=== PATIENT | male | born 1945 | race Caucasian/White ===

== ENCOUNTER 2021-07-08 08:05 | Inpatient (IN) ==
--- NOTE | 2021-06-30 12:18 | Anesthesiology Consultation ---
Date of Service June 30, 2021 Assessment & Plan (1) Encounter for pre-operative examination: Chart Review Chart Review: Pending: Refer to Additional Notes / Consult section (surgeon ordered PCP clearance and preop Covid testing results; CBC and PRP ordered for DOS) and Patient NOT seen in Pre Admission Testing -Awaiting surgeon ordered PCP clearance -No preop labs updated- will order CBC with diff and PRP for stat AM of surgery Per nursing assessment 06/30/2021, patient denies any recent travel. No known Covid infection in the past 90 days. Patient is not vaccinated for Covid. No known Covid positive exposures or Covid related symptoms. Preop Covid testing scheduled 07/06/21= will await results Per cardio phone message 06/03/21 = "Dobutamine stress echo negative for inducible ischemia. Patient may proceed with orthopedic surgery." Patient seen by cardiology 04/19/2021 = seen for preoperative cardiovascular evaluation prior to spine surgery. Doing well from cardiovascular standpoint. Activity limited by low back pain and primarily right lower extremity radiculopathy. Chronic ischemic heart disease without angina at limited activity level. Moderate perioperative cardiovascular risk due to chronic CAD, and limited functional capacity. Dyslipidemiacontrolled with statin. Hypertensioncontrolled. Overweight. Chronic sinus bradycardiaasymptomatic. Recommend DSE for further risk stratification prior to spinal surgery. Functio nal capacity is limited to due to low back pain and radiculopathy. History Surgery Operation Date: 07/08/21 09:45 Proposed Procedures p L3-L4 Decompression and Fusion, L4-L5 Hardware Removal - Gorge Redman, Height/Weight Height: 5 ft 10.5 in Weight: 95.254 kg Allergies Allergy/AdvReac Type Severity Reaction Status Date / Time No Known Allergies Allergy Unknown Verified 06/30/21 11:24 Medications Home Medications Medication Instructions Recorded Confirmed Last Taken aspirin 81 mg tablet,delayed 81 mg PO QAM 04/12/21 06/30/21 Unknown release ezetimibe 10 mg tablet 10 mg PO QPM 04/12/21 06/30/21 Unknown isosorbide mononitrate 30 mg 30 mg PO QAM 04/12/21 06/30/21 Unknown tablet,extended release 24 hr losartan 50 mg-hydrochlorothiazide 1 tab PO QPM 04/12/21 06/30/21 Unknown 12.5 mg tablet metoprolol succinate 25 mg 25 mg PO QPM 04/12/21 06/30/21 Unknown tablet,extended release 24 hr omeprazole 20 mg tablet,delayed 20 mg PO QAM 04/12/21 06/30/21 Unknown release rosuvastatin 20 mg tablet 20 mg PO QPM 04/12/21 06/30/21 Unknown Past Medical History Medical History CAD (coronary artery disease) - Per cardio records= "2010 left heart catheterization performed demonstrating 70 -80% ostial stenosis of the obtuse marginal branch. Patient was noted to have approximately 50% left main as well as a 60% distal LAD stenosis. Patient subsequently had an IVUS performed by Dr. Elizabeth demonstrating minimal left main area of 7.76 mm2. The distal left anterior descending artery area was found to be 3.58. The obtuse marginal stenosis was not intervened secondary to its location and poor risk to benefit ratio." -Currently under medical management by cardio DDD (degenerative disc disease) GERD (gastroesophageal reflux disease) Hearing deficit hearing aids bilat History of COVID-17 JULY 2020>MILD SYMPTOMS *FEELING BETTER HLD (hyperlipidemia) HTN (hypertension) Osteoarthritis Spinal stenosis Past Family History Family History Other No family history of adverse response to anesthesia Past Surgical History Surgical History History of Achilles tendon repair Lt History of arthroscopic surgery of elbow Rt History of arthroscopy of right knee x 2 History of cardiac cath 2010 - [place] - CP - no stents History of colonoscopy History of lumbar fusion History of rotator cuff surgery RT/LEFT Social History Smoking Status: Never smoker Hx Alcohol Use: No Hx Substance Use: No substance use type: does not use Testing Electrocardiogram Date: 04/16/21 Sinus bradycardia, rate 52 bpm. Non-specific intra-ventricular conduction block No significant change was found when compared with ECG of 11/10/2008. Chest X-Ray Date: 04/16/21 No acute process. Stress Test Date: 05/17/21 Type: DSE Resting EF: 60 to 65% Resting LV Function: normal Resting RWMA: + none Normal pharmacologic stress echocardiogram. No echocardiographic or EKG evidence of myocardial ischemia having achieved heart rate adequate for diagnostic purposes. MPHR 86%. Stress EKG showed no diagnostic ST abnormalitiesThe patient did develop, resolving in recovery, right bundle branch block at higher heart rate resolving in recovery. Mild/concentric LVH. Aortic valve sclerosis mild, without significant aortic valvular stenosis.
[~2021-07-08 08:05] MED LIST: ACETAMINOPHEN 500 MG TAB PO SCH; CeleBREX 200 MG CAP PO SCH; GABAPENTIN 300 MG CAP PO SCH; LR 15ML/HR IV SCH; ceFAZolin 2000MG 2,000 MG/15 ML SYR IV SCH
[2021-07-08] MEDS ORDERED: fentaNYL citrate 100 MCG/2 ML VIAL ONE (08:22)
[2021-07-08] MEDS ORDERED: ONDANSETRON INJ 2 MG/ML 2 ML VIAL ONE (08:26)
[2021-07-08] MEDS ORDERED: DEXAMETHASONE SOD INJ 4 MG/ML VIAL ONE (08:26)
[2021-07-08] MEDS ORDERED: PROPOFOL IV EMULSION 10 MG/ML 20 ML VIAL IV ONE (08:26)
[2021-07-08] MEDS ORDERED: NEOSTIGMINE METHYLSULFATE 1 MG/ML 10ML VIAL ONE (08:26)
[2021-07-08] MEDS ORDERED: ROCURONIUM BROMIDE 10 MG/ML 5 ML VIAL IV ONE ×4 (08:26→12:46)
[2021-07-08] MEDS ORDERED: LIDOCAINE 2% 2 ML VIAL/AMP(20MG/ML) INFIL ONE (08:26)
[2021-07-08] MEDS ORDERED: GLYCOPYRROLATE 0.2 MG/ML VIAL ONE ×2 (08:26→14:50)
[2021-07-08 08:47] LABS: Basophils # (auto) 0.01 K/uL (0-0.2); Basophils % (auto) 0.3 %; Eosinophils # (auto) 0.04 K/uL (0-0.5); Hematocrit (blood only) 43.1 % (42-52); Hemoglobin 14.8 g/dL (14.0-18.0); Immature Granulocytes # (auto) 0.01 K/uL (0.00-0.02); Immature Granulocytes % (auto) 0.3 %; Lymphocytes # (auto) 1.03 K/uL (1.2-3.4); Lymphocytes % (auto) 25.9 %; Mean Corpuscular Hemoglobin 32.1 pg (25-34); Mean Corpuscular Hgb Conc 34.3 g/dL (32-36); Mean Corpuscular Volume 93.5 fL (80-100); Mean Platelet Volume 9.3 fL (7.4-10.4); Monocytes # (auto) 0.37 K/uL (0.11-0.59); Monocytes % (auto) 9.3 %; Neutrophils # (auto) 2.51 K/uL (1.4-6.5); Neutrophils % (auto) 63.2 %; Platelet Count 199 K/uL (130-400); RDW Coefficient of Variation 12.5 % (11.5-14.5); RDW Standard Deviation 42.1 fL (36.4-46.3); Red Blood Count 4.61 M/uL (4.7-6.1); White Blood Count 3.97 K/uL (4.8-10.8)
[2021-07-08] MEDS ORDERED: ONDANSETRON INJ 2 MG/ML 2 ML VIAL IV PRN (10:25)
[2021-07-08] MEDS ORDERED: ATROPINE SULFATE 0.1 MG/ML 10ML SYR IV PRN (10:25)
[2021-07-08] MEDS ORDERED: ePHEDrine sulfate 50 MG/ML AMP IV PRN (10:25)
[2021-07-08] MEDS ORDERED: HYDROmorphone INJ 1 MG/ML SYRINGE IV PRN (10:25)
[2021-07-08] MEDS ORDERED: LABETALOL HCL IV 5 MG/ML 20ML IV PRN (10:25)
[2021-07-08] MEDS ORDERED: PHENYLEPHRINE 100MCG/ML 5ML SYR IV PRN (10:25)
[2021-07-08] MEDS ORDERED: MEPERIDINE HCL 25 MG/ML CARP/VIAL IV PRN (10:25)
--- NOTE | 2021-07-08 11:10 | History & Physical Report ---
Date of Service July 08, 2021 Assessment & Plan (1) Neurogenic claudication due to lumbar spinal stenosis: Plan: L3-L4 decompression and fusion, L4-5 hardware removal History of Present Illness Chief Complaint: Back and bilateral leg pain Primary Care Provider: Brett Woodruff DO This is a 76-year-old male presents with chronic persistent back and leg pain. Failing course of nonoperative care is here for surgical invention. Allergies Allergy/AdvReac Type Severity Reaction Status Date / Time No Known Allergies Allergy Unknown Verified 07/08/21 08:19 Home Medications Medication Instructions Recorded Confirmed Type aspirin 81 mg tablet,delayed 81 mg PO QAM 04/12/21 07/08/21 History release ezetimibe 10 mg tablet 10 mg PO QPM 04/12/21 07/08/21 History isosorbide mononitrate 30 mg 30 mg PO QAM 04/12/21 07/08/21 History tablet,extended release 24 hr losartan 50 mg-hydrochlorothiazide 1 tab PO QPM 04/12/21 07/08/21 History 12.5 mg tablet metoprolol succinate 25 mg 25 mg PO QPM 04/12/21 07/08/21 History tablet,extended release 24 hr omeprazole 20 mg tablet,delayed 20 mg PO QAM 04/12/21 07/08/21 History release rosuvastatin 20 mg tablet 20 mg PO QPM 04/12/21 07/08/21 History Past Med/Surg History Medical History (Updated 07/08/21 @ 11:10 by Gorge Redman DO) CAD (coronary artery disease) - Per cardio records= "2010 left heart catheterization performed demonstrating 70 -80% ostial stenosis of the obtuse marginal branch. Patient was noted to have approximately 50% left main as well as a 60% distal LAD stenosis. Patient subsequently had an IVUS performed by Dr. Elizabeth demonstrating minimal left main area of 7.76 mm2. The distal left anterior descending artery area was found to be 3.58. The obtuse marginal stenosis was not intervened secondary to its location and poor risk to benefit ratio." -Currently under medical management by cardio DDD (degenerative disc disease) GERD (gastroesophageal reflux disease) Hearing deficit hearing aids bilat History of COVID-17 JULY 2020>MILD SYMPTOMS *FEELING BETTER HLD (hyperlipidemia) HTN (hypertension) Obesity Osteoarthritis Spinal stenosis Surgical History History of Achilles tendon repair Lt History of arthroscopic surgery of elbow Rt History of arthroscopy of right knee x 2 History of cardiac cath 2010 - [place] - CP - no stents History of colonoscopy History of lumbar fusion History of rotator cuff surgery RT/LEFT Family History Other No family history of adverse response to anesthesia Social History Smoking Status: Never smoker Second Hand Exposure: No; Hx Alcohol Use: No Hx Substance Use: No Preferred Language: Cuban Communication Ability: Effective Bike Shop Manager Required: No Beliefs That Will Affect Care: None Current Living Situation: Spouse Feels Safe at Home: Yes Assistive Devices: Contacts and Hearing Aid - Bilateral Physical Exam Physical Exam: Patient is alert and oriented Heart regular in rhythm Lungs clear Results & Data ([facility]) Vital Signs (Past 12 Hours) Vital Signs Temp Pulse Resp BP Pulse Ox 07/08/21 08:29 36.8 C 64 18 154/82 H 96
--- NOTE | 2021-07-08 11:10 | History & Physical Bridge Note ---
Date of Service July 08, 2021 History & Physical Bridge Note I have examined the patient, reviewed the History & Physical and in the interval since the performance of the History & Physical I have noted the following changes of clinical significance: no changes noted
[2021-07-08] MEDS ORDERED: BUPIVACAINE 0.5 % 5 MG/1 ML MPF 30ML VIAL ONE (11:25)
[2021-07-08] MEDS ORDERED: EPINEPHrine INJ 1 MG/ML AMP ONE (11:25)
[2021-07-08] MEDS ORDERED: ceFAZolin 330 MG/ML 1 GM VIAL ONE (11:25)
[2021-07-08] MEDS ORDERED: ePHEDrine sulfate 50 MG/ML AMP ONE (12:09)
[2021-07-08] MEDS ORDERED: FLOSEAL HEMOSTATIC MATRIX 10ML TOP ONE (12:52)
--- NOTE | 2021-07-08 14:55 | Fluoroscopy Report ---
FL lumbar spine 2-3V CLINICAL HISTORY: L4-5 REMOVE hardware. L3-4 decompression and fusion COMPARISON STUDY: None. FLUOROSCOPY TIME: 20 seconds.. FINDINGS: 2 fluoroscopic spot images demonstrate posterior decompression fusion at the lower lumbar s pine likely at the L3-L4 level with pedicle screws and rods. The hardware appears intact. The exact l evel is difficult to determine due to the spot image. IMPRESSION: Fluoroscopic assistance provided for posterior decompression and fusion within the lumbar spine as described above. ACT 112: Negative or not required by law. Electronically signed by: Luis Antonio Greer M.D. 07/08/2021 2:54 PM
[2021-07-08] MEDS: fentaNYL citrate 100 MCG/2 ML VIAL IV PRN ×4 (16:00→16:55)
--- NOTE | 2021-07-08 16:33 | Anesthesiology Progress Note ---
Date of Service July 08, 2021 Anesthesia Post Procedure Vital Signs Vital Signs: Temp Pulse Pulse Resp BP Pulse Ox 07/08/21 16:20 54 L 17 121/71 99 07/08/21 16:10 46 L 18 133/66 95 07/08/21 16:00 36.4 C L 55 L 16 123/70 96 07/08/21 15:50 51 L 14 139/71 98 07/08/21 15:40 49 L 14 137/73 99 07/08/21 15:30 521 H 15 139/76 99 07/08/21 15:20 53 L 16 143/74 H 99 07/08/21 15:13 36 C L 67 14 136/83 99 07/08/21 08:29 36.8 C 64 18 154/82 H 96 Pain Intensity Back: Pain Intensity: 6 Transfer of Care Handoff Completed per policy Notes Mental Status: alert / awake / arousable Patient Amnestic to Procedure: Yes Nausea / Vomiting: adequately controlled Pain: adequately controlled Airway Patency, RR, SpO2: stable & adequate BP & HR: stable & adequate Hydration State: stable & adequate Anesthetic Complications: no major complications apparent
[2021-07-08] MEDS ORDERED: oxyCODONE HCL IR 5 MG TAB (IMMEDIATE RELEASE) PO PRN (17:45)
[2021-07-08] MEDS: SODIUM CHLORIDE 0.9% 1000ML 1,000 ML IV SCH (17:49)
[2021-07-08] MEDS ORDERED: NALOXONE HCL 0.4 MG/1 ML VIAL/CARP IV PRN (18:29)
--- NOTE | 2021-07-08 18:30 | Hospitalist Consultation ---
Date of Consultation July 08, 2021 Assessment & Plan (1) Neurogenic claudication due to lumbar spinal stenosis: S/P spinal surgery by Dr. Redman - Activity positioning and restrictions per primary service - Pain medications per primary service- rescue Narcan added - ABX per primary service - IVF per primary service - VTE- per primary service - Diet per primary service - Drains/Golden catheter per primary service - PT/OT per primary service (2) HTN (hypertension): Controlled currently - Resume Isosorbide in am - Metoprolol succinate 25mg PO qpm- restart tonight (3) CAD (coronary artery disease): History of CAD- Cath 2014 with 70-80% Om, 50% LT Main, 60% LAD, with IVUS - medical managment - ASA on hold until hemostasis ensured by primary service- - Continue BB, statin, - Hold JOSE/HCTZ while following intravascular volume, hemodynamics, and renal function- likely restart in am (4) GERD (gastroesophageal reflux disease): Protonix 40mg IV - restart oral when tolerating diet - Continue PPI while on Decadron IV (5) Obesity: Continue with weight reduction goals to decrease roasterman CV morbidity Supervising Physician Co-Signing Physician Notes Patient seen and examined, chart reviewed, case discussed with Nilesh Russell and I agree with the assessment and plan as above except as otherwise noted General: A&O. NAD. Cooperative. Laying in bed HEENT: Atraumatic, normocephalic. Pulm: Limited as laying flat, grossly CTAB A&P. -wheezes, -rales, -rhonchi. Symmetrical chest rise. No increase work of breathing. No respiratory distress. Cardiac: RRR, -mrg. Radial pulses intact and symmetrical. Abdominal: Nontender, nondistended, soft. BS present. Ext: Sensation to soft touch intact in hands and feet, PT/radial pulses intact bilat All labs and images reviewed 76yo M s/p spinal surgery for neurogenic claudication 2/2 lumbar stenosis. Stable at assessment. No CP. JOSE/HCtz held, resume in AM. Agree w/ management as above. History of Present Illness Reason for Consultation: Medical Managment Requesting Physician: Dr. Redman Attending Physician: Gorge Redman, DO History of Present Illness 76 YOM POD #0 for L3-L4 decompression and fusion with L4-L5 hardware removal secondary to neurogenic claudication. Patient has medical history consistent with CAD, HLD, HTN, GERD, Hearing aid use, Obesity, and OA. Patient had Dobutamine stress ECHO done 05/22 that was negative. Patient was evaluated in his room status post procedure where he is flat lying in bed under Orthopaedics direction. Patient is briskly awake states no nausea or vomitting. Pain is controlled and his right leg feels improved. Patient has full sensation and movement intact of all extremities. Vital signs reviewed. Medications Reconciled. Recomendations: - ASA - hold restart when hemostasis is ensured by primary service - Added Protonix IV while on daily Decadron 6mg IV - Hold Losartan/HCTZ follow volume status and renal indices- likely restart within next 24-48 hours - Continue rest of home medications - BG checks while on Decadron daily- notify if >180 - CBC, BMP, MG in morning Allergies Allergy/AdvReac Type Severity Reaction Status Date / Time No Known Allergies Allergy Unknown Verified 07/08/21 08:19 Home Medications Medication Instructions Recorded Confirmed Type aspirin 81 mg tablet,delayed 81 mg PO QAM 04/12/21 07/08/21 History release ezetimibe 10 mg tablet 10 mg PO QPM 04/12/21 07/08/21 History isosorbide mononitrate 30 mg 30 mg PO QAM 04/12/21 07/08/21 History tablet,extended release 24 hr losartan 50 mg-hydrochlorothiazide 1 tab PO QPM 04/12/21 07/08/21 History 12.5 mg tablet metoprolol succinate 25 mg 25 mg PO QPM 04/12/21 07/08/21 History tablet,extended release 24 hr omeprazole 20 mg tablet,delayed 20 mg PO QAM 04/12/21 07/08/21 History release rosuvastatin 20 mg tablet 20 mg PO QPM 04/12/21 07/08/21 History Patient History Medical History (Updated 07/08/21 @ 18:28 by CIRO Rayo) CAD (coronary artery disease) - Per cardio records= "2010 left heart catheterization performed demonstrating 70 -80% ostial stenosis of the obtuse marginal branch. Patient was noted to have approximately 50% left main as well as a 60% distal LAD stenosis. Patient subsequently had an IVUS performed by Dr. Al Zoda demonstrating minimal left main area of 7.76 mm2. The distal left anterior descending artery area was found to be 3.58. The obtuse marginal stenosis was not intervened secondary to its location and poor risk to benefit ratio." -Currently under medical management by cardio DDD (degenerative disc disease) GERD (gastroesophageal reflux disease) Hearing deficit hearing aids bilat History of COVID-17 JULY 2020>MILD SYMPTOMS *FEELING BETTER HLD (hyperlipidemia) HTN (hypertension) Obesity Osteoarthritis Spinal stenosis Surgical History History of Achilles tendon repair Lt History of arthroscopic surgery of elbow Rt History of arthroscopy of right knee x 2 History of cardiac cath 2010 [place] CP - no stents History of colonoscopy History of lumbar fusion History of rotator cuff surgery RT/LEFT Family History Other No family history of adverse response to anesthesia Social History Smoking Status: Never smoker Second Hand Exposure: No; Hx Alcohol Use: No Hx Substance Use: No Preferred Language: Chilean Communication Ability: Effective Business Systems Manager Required: No Beliefs That Will Affect Care: None Current Living Situation: Spouse Feels Safe at Home: Yes Assistive Devices: Contacts and Hearing Aid - Bilateral Review of Systems Review of Systems: REVIEW OF SYSTEMS: Constitutional: No fever, sweats or chills Eyes: No diplopia, no worsening or blurred vision ENT: (+) hearing aids, dry moth, scratchy throat no trouble swallowing Respiratory: No cough, sputum, dyspnea at rest or on exertion Cardiovascular: No chest pain, tightness or palpitations Abdomen: No pain, nausea, vomiting, diarrhea or constipation Musculoskeletal: (+) chronic back and knee pain, No calf pain, swelling Neurologic: No weakness, numbness/tingling, or balance problems Psychiatric: No anxiety or depression Skin: No rash or itch Physical Exam Physical Exam: PHYSICAL EXAM: General: awake, alert, no apparent distress Head: Normocephalic, atraumatic ENT: PERRL, EOMI, no pharyngeal exudate, mucous membranes dry Neuro: AAO x 3, speech clear and appropriate, strength intact bilaterally 5/5, sensation intact and equal all extremities and dermatomes, flat lying per orthopaedics direction Chest: equal rise and fall of the chest, no accessory muscle use, no heaves or thrills, Clear to auscultation, on room air, Cardiac: Regular rate and rhythm, S1S2, skin warm dry, cap refill <3 seconds, peripheral pulses +2 no JVD, no murmur, no edema GI: NABS x 4 quadrants, soft obese, nontender to palpation, no rebound, guarding or tenderness : Golden to gravity, no pain, no CVA tenderness, Extremities: Normal inspection, no peripheral edema or erythema, calfs nontender to palpation Psych: Normal mood and affect Skin: no rash or erythema Results & Data Results & Data ([facility]) Vital Signs (Past 12 Hours) Vital Signs Temp Pulse Pulse Resp BP Pulse Ox 07/08/21 18:00 36.6 C 62 18 147/81 H 97 07/08/21 17:29 36.3 C L 69 18 130/72 94 07/08/21 17:00 36.1 C L 47 L 15 127/66 97 07/08/21 16:45 48 L 20 119/66 97 07/08/21 16:30 45 L 21 123/64 98 07/08/21 16:20 54 L 17 121/71 99 07/08/21 16:10 46 L 18 133/66 95 07/08/21 16:00 36.4 C L 55 L 16 123/70 96 07/08/21 15:50 51 L 14 139/71 98 07/08/21 15:40 49 L 14 137/73 99 07/08/21 15:30 521 H 15 139/76 99 07/08/21 15:20 53 L 16 143/74 H 99 07/08/21 15:13 36 C L 67 14 136/83 99 07/08/21 08:29 36.8 C 64 18 154/82 H 96 Laboratory Results Abnormal lab results 07/08/21 Range/Units 08:32 WBC 3.97 L (4.8-10.8) K/uL RBC 4.61 L (4.7-6.1) M/uL Lymph # (Auto) 1.03 L (1.2-3.4) K/uL Diagnostic Findings Lumbar Spine X-Ray 07/08/21 09:45 FL lumbar spine 2-3V CLINICAL HISTORY: L4-5 REMOVE hardware. L3-4 decompression and fusion COMPARISON STUDY: None. FLUOROSCOPY TIME: 20 seconds.. FINDINGS: 2 fluoroscopic spot images demonstrate posterior decompression fusion at the lower lumbar spine likely at the L3-L4 level with pedicle screws and rods. The hardware appears intact. The exact level is difficult to determine due to the spot image. IMPRESSION: Fluoroscopic assistance provided for posterior decompression and fusion within the lumbar spine as described above. ACT 112: Negative or not required by law. Electronically signed by: Luis Antonio Greer M.D. 07/08/2021 2:54 PM Medications Administered Lactated Ringer's (Lr) 1,000 mls @ 15 mls/hr IV .Q24H YESSENIA Stop: 07/09/21 05:59 Last Infusion: 07/08/21 11:47 Dose: 0 mls/hr Documented by: [id number] Admin: 07/08/21 08:44 Dose: 15 mls/hr Documented by: [id number] Sodium Chloride (Nss 1000ml) 1,000 mls @ 100 mls/hr IV .Q10H YESSENIA Stop: 08/07/21 17:44 Last Admin: 07/08/21 17:49 Dose: 100 mls/hr Documented by: [id number] Discontinued Medications Acetaminophen (Acetaminophen 500 Mg Tab) 1,000 mg PO PREOP YESSENIA Stop: 07/08/21 18:00 Last Admin: 07/08/21 08:45 Dose: 1,000 mg Documented by: [id number] Bupivacaine HCl (Bupivacaine 0.5 % 5 Mg/1 Ml Mpf 30ml Vial) Confirm Administered Dose 30 ml .ROUTE .STK-MED ONE Stop: 07/08/21 11:26 Last Admin: 07/08/21 12:49 Dose: 30 ml Documented by: [id number] Cefazolin Sodium (Cefazolin 330 Mg/Ml 1 Gm Vial) Confirm Administered Dose 990 mg .ROUTE .STK-MED ONE Stop: 07/08/21 11:26 Last Admin: 07/08/21 12:50 Dose: 990 mg Documented by: [id number] Celecoxib (Celebrex 200 Mg Cap) 200 mg PO PREOP YESSENIA Stop: 07/08/21 18:00 Last Admin: 07/08/21 08:45 Dose: 200 mg Documented by: [id number] Epinephrine HCl (Epinephrine Inj 1 Mg/Ml Amp) Confirm Administered Dose 1 mg .ROUTE .STK-MED ONE Stop: 07/08/21 11:26 Last Admin: 07/08/21 12:51 Dose: 1 mg Documented by: [id number] Fentanyl Citrate (Fentanyl Citrate 100 Mcg/2 Ml Vial) 25 mcg IV Q5M PRN PRN Reason: PACU Use Only-Pain Stop: 07/08/21 18:25 Last Admin: 07/08/21 16:55 Dose: 25 mcg Documented by: [id number] Admin: 07/08/21 16:20 Dose: 25 mcg Documented by: [id number] Admin: 07/08/21 16:06 Dose: 25 mcg Documented by: [id number] Admin: 07/08/21 16:00 Dose: 25 mcg Documented by: [id number] Gabapentin (Gabapentin 300 Mg Cap) 300 mg PO PREOP YESSENIA Stop: 07/08/21 18:00 Last Admin: 07/08/21 08:45 Dose: 300 mg Documented by: [id number] Cefazolin Sodium (Ancef 2000mg) 2,000 mg in 15 mls @ 3.75 mls/min IV PREOP YESSENIA; Protocol Stop: 07/08/21 18:00 Last Admin: 07/08/21 11:47 Dose: 3.75 mls/min Documented by: [id number] Miscellaneous ( Floseal Hemostatic Matrix 10ml) 10 ml TOP ONCE ONE Stop: 07/08/21 12:53 Last Admin: 07/08/21 15:45 Dose: 45 ml Documented by: [id number] PG Care Time/CCT Total # of Minutes Spent Total Time Spent with Patient: Total time spent is greater than 50% in coordination of care (as documented) at patient's floor/unit and/or counseling patient: Coding Level of Care Code 26990 Office/OBS Consult Lvl 3 Diagnoses Neurogenic claudication due to lumbar spinal stenosis M48.062 HTN (hypertension) I10 CAD (coronary artery disease) I25.10 GERD (gastroesophageal reflux disease) K21.9 Obesity E66.9
[2021-07-08] MEDS: ceFAZolin 2000MG 2,000 MG/15 ML SYR IV SCH (19:33)
[2021-07-08] MEDS ORDERED: CHLORASEPTIC 1.4% SOLN 180 ML BTL MT PRN (20:57)
[2021-07-08] MEDS ORDERED: EZETIMIBE 10 MG TABLET PO SCH (21:00)
[2021-07-08] MEDS ORDERED: ROSUVASTATIN CALCIUM 20 MG TAB PO SCH (21:00)
[2021-07-08] MEDS: METOPROLOL SUCC 25MG EXT REL TAB PO SCH (21:04)
[2021-07-08] MEDS: traMADol HCL 50 MG TABLET PO PRN (22:04)
[2021-07-08] MEDS: HYDROmorphone INJ 0.5 MG/0.5 ML SYR IV PRN (23:33)
[2021-07-09] MEDS ORDERED: ONDANSETRON INJ 2 MG/ML 2 ML VIAL IV PRN (01:48)
[2021-07-09] MEDS: SODIUM CHLORIDE 0.9% 1000ML 1,000 ML IV SCH (03:30)
[2021-07-09] MEDS: ceFAZolin 2000MG 2,000 MG/15 ML SYR IV SCH (03:43)
[2021-07-09] MEDS ORDERED: PROCHLORPERAZINE 5 MG in SYRINGE 4 ML IV ONE ×2 (03:45→06:52)
[2021-07-09] MEDS: HYDROmorphone INJ 0.5 MG/0.5 ML SYR IV PRN ×2 (03:52→12:09)
[2021-07-09 04:40] LABS: Appearance Urine Clear (Clear); Bacteria Urine Automated Negative (Negative); Bilirubin Urine Negative (Negative); Blood Urine 2+ (Negative); Color Urine Yellow; Glucose Urine UA Negative (Negative); Ketones Urine Negative (Negative); Leukocyte Esterase Urine Trace (Negative); Nitrite Urine Negative (Negative); Protein Urine Negative (Negative); Specific Gravity Urine 1.024 (1.000-1.030); Urobilinogen Urine Negative (Negative)
[2021-07-09 06:25] LABS: Hematocrit (blood only) 39.1 % (42-52); Hemoglobin 13.4 g/dL (14.0-18.0); Immature Granulocytes # (auto) 0.02 K/uL (0.00-0.02); Immature Granulocytes % (auto) 0.2 %; Lymphocytes # (auto) 0.43 K/uL (1.2-3.4); Lymphocytes % (auto) 3.8 %; Mean Corpuscular Hemoglobin 31.7 pg (25-34); Mean Corpuscular Hgb Conc 34.3 g/dL (32-36); Mean Corpuscular Volume 92.4 fL (80-100); Mean Platelet Volume 9.3 fL (7.4-10.4); Monocytes % (auto) 5.3 %; Neutrophils # (auto) 10.35 K/uL (1.4-6.5); Neutrophils % (auto) 90.7 %; Platelet Count 205 K/uL (130-400); RDW Coefficient of Variation 12.4 % (11.5-14.5); RDW Standard Deviation 42.2 fL (36.4-46.3); Red Blood Count 4.23 M/uL (4.7-6.1)
[2021-07-09 07:17] LABS: Calcium 8.7 mg/dl (8.5-10.1); Creatinine Clr Calc Pharmacy 100.2 ml/min; Est GFR (African American) 104.2 ml/min; Est GFR (Non-African American) 89.9 ml/min; Magnesium 1.6 mg/dl (1.7-2.4)
[2021-07-09] MEDS: ISOSORBIDE MONO EXTENDED REL 30 MG TABCR PO SCH (07:35)
[2021-07-09] MEDS: dexAMETHasone 6 MG in SYRINGE 0 ML IV SCH (07:35)
--- NOTE | 2021-07-09 08:14 | Hospitalist Progress Note ---
Date of Service July 09, 2021 Assessment & Plan (1) Ileus: Plan: Post-operatively, folloing durotomy with tears and on bedrest since surgery --> Increased n/v overnight, got compazine x 2, ineffective WBC increased, but also getting steroids, afebrile severe distension on exam and discomfort, no flatus/BM KUB obtained and severe gaseous distension of stomach Asked RN to placed NGT stat for immediate decompression and symptom improvement Phenergan x 1 NPO, general surgery consults Mag checked, 1.6 and ordering replacement to keep ~2 Added K to IVF for maintenance Activity at disretion of primary however asked to keep multani and LAURA in place for now, RN reported turning patient overnight and increased LAURA output and will monitor UA pending Serial exams Hold further BP medications with exception of metoprolol as he got this morning, BP currently 130.78. Can add hydralazine if needed Phenergan ordered prn n/v as compazine ineffective (2) Neurogenic claudication due to lumbar spinal stenosis: Plan: POD#1 S/P spinal surgery L3-L4 decomp/dusion and L4-L5 hardware removal by Dr. Redman, with dural tears reported but OP report not yet in system Abx per primary IVF as primary but added K to IVF as above LAURA drain to remain in place for now until see by Dr Юлия Multani to remain in place due to #1 and bedrest status Diet back to NPO for #1 Hgb 13.4 -- acute blood loss anemia from surgery and IVF as above CBC in AM, LAURA drain to remain in place for now PT/OT per primary (3) HTN (hypertension): Plan: BP controlled Ordered metoprolol but holding cozaar-HCTZ while NPO for above, BP currently 130/78 Hydralazine available prn (4) CAD (coronary artery disease): Plan: History of CAD- Cath 2014 with 70-80% Om, 50% LT Main, 60% LAD, with IVUS - medical managment ASA on hold until hemostasis ensured by primary service- Continued BB Statin on hold while NPO, as well as JOSE/HCTZ No CP/SOB reported Monitor (5) GERD (gastroesophageal reflux disease): Plan: Protonix 40mg IV while NPO, consider increasing to BID if needed while NPO on decadron Mag 1.6 as above, replacement ordered and keeping ~2 for #1 (6) Obesity: Plan: Continue with weight reduction goals to decrease long distance operator CV morbidity Plan: NPO, NGT to be inserted General surgery notified, to follow Dr Redman to see later this morning to determine when to pull drain given dural tear Labs in AM Admission and Anticipated Discharge Date Admission Date: July 08, 2021 Supervising Physician Co-Signing Physician Notes Attending Attestation - Chart reviewed in detail, care plan d/w PA Brittney López. I agree w/ the arriaga components of her documentation. Vicente Rust MD Subjective Patient evaluated this morning. Continues to remain on bedrest. Nauseous all night with vomiting as well, yellowish emesis Very nauseated, vomiting about 10 minutes ago. Got Compazine and was vomiting after. Discussed dose of phenergan x 1. States he has never had issues with anesthesia in past. No fever/chills/chest pain or shortness of breath. Generalized abdominal pain, tender to palpation but no rebound/rigidity. --> ABd SEVERELY DISTENDED, pain worse in epigastric/LUQ Not eating much, not passing gas. Discussed likely ileus, KUB ordered and pending, discussed backing off of oral d iet for now until return of bowel function. Messaged Dr Redman -- will continue to keep multani/LAURA drain for now. RN reported when turning overnight, RN observed LAURA filling quickly, and will remain in place for this time. States his R leg pain is resolved and strength equal compared to left. Review of Systems Review of Systems: All systems reviewed & are unremarkable except as noted in HPI & below Physical Exam Physical Exam: Geneal: 76yo male, WN, WD, mild distress with emesis bag, small amount yellow emesis ENT: dry mm, trachea midline, no deviation Resp: CTAB, diminished in bases, on room air CV: RRR< no m/r/g, no edema, pulses present GI: +severe distension, hypoactive BS, generalized tenderness, LUQ/epigastric with increased discomfort, no guarding/rigidity : multani with yellow urine draining MSK: dressing to spine intact, LAURA with blood drainage, laying flat in bed per orthopedic instructions, b/l LE strength equal and intact, did not get up out of bed Skin: warm, dry Psych: AOx3, cooperative Results & Data Results & Data ([place]) Vital Signs (Past 12 Hours) Vital Signs Temp Pulse Resp BP Pulse Ox 07/09/21 07:48 36.6 C 81 16 130/78 95 07/09/21 06:46 37.0 C 72 16 158/59 H 92 07/09/21 03:24 37.0 C 70 18 110/79 95 07/09/21 01:27 36.5 C 94 H 16 147/78 H 94 07/09/21 01:25 121/45 L 07/09/21 01:04 36.5 C 68 18 135/74 96 07/08/21 21:30 36.5 C 63 18 143/77 H 96 07/08/21 20:30 36.3 C L 84 18 118/76 95 Laboratory Results 07/09/21 07/09/21 07/09/21 Range/Units 06:13 06:13 04:08 WBC 11.40 H (4.8-10.8) K/uL RBC 4.23 L (4.7-6.1) M/uL Hgb 13.4 L (14.0-18.0) g/dL Hct 39.1 L (42-52) % MCV 92.4 (80-100) fL MCH 31.7 (25-34) pg MCHC 34.3 (32-36) g/dL RDW Std Deviation 42.2 (36.4-46.3) fL RDW Coeff of Rupali 12.4 (11.5-14.5) % Plt Count 205 (130-400) K/uL MPV 9.3 (7.4-10.4) fL Immature Gran % (Auto) 0.2 % Neut % (Auto) 90.7 % Lymph % (Auto) 3.8 % [place] % (Auto) 5.3 % Eos % (Auto) 0.0 % Baso % (Auto) 0.0 % Neut # (Auto) 10.35 H (1.4-6.5) K/uL Lymph # (Auto) 0.43 L (1.2-3.4) K/uL [place] # (Auto) 0.60 H (0.11-0.59) K/uL Eos # (Auto) 0.00 (0-0.5) K/uL Baso # (Auto) 0.00 (0-0.2) K/uL Immature Gran # (Auto) 0.02 (0.00-0.02) K/uL Sodium 138 (136-145) mmol/L Potassium 4.0 (3.5-5.1) mmol/L Chloride 106 (98-107) mmol/L Carbon Dioxide 25 (21-32) mmol/L Anion Gap 7 (3-11) BUN 19 (6-23) mg/dl Creatinine 0.76 (0.6-1.4) mg/dl Est Cr Clr Drug Dosing 100.2 ml/min Est GFR ( Amer) 104.2 ml/min Est GFR (Non-Af Amer) 89.9 ml/min BUN/Creatinine Ratio 25.0 H (10-20) Glucose 132 H (70-99(Fasting)) mg/dl POC Glucose (70-99) mg/dl Calcium 8.7 (8.5-10.1) mg/dl Magnesium 1.6 L (1.7-2.4) mg/dl Urine Color Yellow Urine Appearance Clear (Clear) Urine pH 6.0 (4.5-7.5) Ur Specific [place] 1.024 (1.000-1.030) Urine Protein Negative (Negative) Urine Glucose (UA) Negative (Negative) Urine Ketones Negative (Negative) Urine Blood 2+ H (Negative) Urine Nitrite Negative (Negative) Urine Bilirubin Negative (Negative) Urine Urobilinogen Negative (Negative) Ur Leukocyte Esterase Trace H (Negative) Urine WBC (Auto) 10-30 H (0-5) /hpf Urine RBC (Auto) 10-30 H (0-4) /hpf U Hyaline Cast (Auto) 1-5 (0-5) /lpf U Epithel Cells (Auto) 10-20 H (0-5) /lpf Urine Bacteria (Auto) Negative (Negative) SARS-CoV-2, RNA, NAAT (NEGATIVE) Blood Type Antibody Screen 07/08/21 07/08/21 07/08/21 Range/Units Unknown 20:19 08:32 WBC 3.97 L (4.8-10.8) K/uL RBC 4.61 L (4.7-6.1) M/uL Hgb 14.8 (14.0-18.0) g/dL Hct 43.1 (42-52) % MCV 93.5 (80-100) fL MCH 32.1 (25-34) pg MCHC 34.3 (32-36) g/dL RDW Std Deviation 42.1 (36.4-46.3) fL RDW Coeff of Rupali 12.5 (11.5-14.5) % Plt Count 199 (130-400) K/uL MPV 9.3 (7.4-10.4) fL Immature Gran % (Auto) 0.3 % Neut % (Auto) 63.2 % Lymph % (Auto) 25.9 % [place] % (Auto) 9.3 % Eos % (Auto) 1.0 % Baso % (Auto) 0.3 % Neut # (Auto) 2.51 (1.4-6.5) K/uL Lymph # (Auto) 1.03 L (1.2-3.4) K/uL [place] # (Auto) 0.37 (0.11-0.59) K/uL Eos # (Auto) 0.04 (0-0.5) K/uL Baso # (Auto) 0.01 (0-0.2) K/uL Immature Gran # (Auto) 0.01 (0.00-0.02) K/uL Sodium (136-145) mmol/L Potassium (3.5-5.1) mmol/L Chloride (98-107) mmol/L Carbon Dioxide (21-32) mmol/L Anion Gap (3-11) BUN (6-23) mg/dl Creatinine (0.6-1.4) mg/dl Est Cr Clr Drug Dosing ml/min Est GFR ( Amer) ml/min Est GFR (Non-Af Amer) ml/min BUN/Creatinine Ratio (10-20) Glucose (70-99(Fasting)) mg/dl POC Glucose 129 H (70-99) mg/dl Calcium (8.5-10.1) mg/dl Magnesium (1.7-2.4) mg/dl Urine Color Urine Appearance (Clear) Urine pH (4.5-7.5) Ur Specific [place] (1.000-1.030) Urine Protein (Negative) Urine Glucose (UA) (Negative) Urine Ketones (Negative) Urine Blood (Negative) Urine Nitrite (Negative) Urine Bilirubin (Negative) Urine Urobilinogen (Negative) Ur Leukocyte Esterase (Negative) Urine WBC (Auto) (0-5) /hpf Urine RBC (Auto) (0-4) /hpf U Hyaline Cast (Auto) (0-5) /lpf U Epithel Cells (Auto) (0-5) /lpf Urine Bacteria (Auto) (Negative) SARS-CoV-2, RNA, NAAT NEGATIVE (NEGATIVE) Blood Type Antibody Screen 07/08/21 Range/Units 08:32 WBC (4.8-10.8) K/uL RBC (4.7-6.1) M/uL Hgb (14.0-18.0) g/dL Hct (42-52) % MCV (80-100) fL MCH (25-34) pg MCHC (32-36) g/dL RDW Std Deviation (36.4-46.3) fL RDW Coeff of Rupali (11.5-14.5) % Plt Count (130-400) K/uL MPV (7.4-10.4) fL Immature Gran % (Auto) % Neut % (Auto) % Lymph % (Auto) % [place] % (Auto) % Eos % (Auto) % Baso % (Auto) % Neut # (Auto) (1.4-6.5) K/uL Lymph # (Auto) (1.2-3.4) K/uL [place] # (Auto) (0.11-0.59) K/uL Eos # (Auto) (0-0.5) K/uL Baso # (Auto) (0-0.2) K/uL Immature Gran # (Auto) (0.00-0.02) K/uL Sodium (136-145) mmol/L Potassium (3.5-5.1) mmol/L Chloride (98-107) mmol/L Carbon Dioxide (21-32) mmol/L Anion Gap (3-11) BUN (6-23) mg/dl Creatinine (0.6-1.4) mg/dl Est Cr Clr Drug Dosing ml/min Est GFR ( Amer) ml/min Est GFR (Non-Af Amer) ml/min BUN/Creatinine Ratio (10-20) Glucose (70-99(Fasting)) mg/dl POC Glucose (70-99) mg/dl Calcium (8.5-10.1) mg/dl Magnesium (1.7-2.4) mg/dl Urine Color Urine Appearance (Clear) Urine pH (4.5-7.5) Ur Specific [place] (1.000-1.030) Urine Protein (Negative) Urine Glucose (UA) (Negative) Urine Ketones (Negative) Urine Blood (Negative) Urine Nitrite (Negative) Urine Bilirubin (Negative) Urine Urobilinogen (Negative) Ur Leukocyte Esterase (Negative) Urine WBC (Auto) (0-5) /hpf Urine RBC (Auto) (0-4) /hpf U Hyaline Cast (Auto) (0-5) /lpf U Epithel Cells (Auto) (0-5) /lpf Urine Bacteria (Auto) (Negative) SARS-CoV-2, RNA, NAAT (NEGATIVE) Blood Type O Positive Antibody Screen NEGATIVE Diagnostic Findings Lumbar Spine X-Ray 07/08/21 09:45 [place] lumbar spine 2-3V CLINICAL HISTORY: L4-5 REMOVE hardware. L3-4 decompression and fusion COMPARISON STUDY: None. FLUOROSCOPY TIME: 20 seconds.. FINDINGS: 2 fluoroscopic spot images demonstrate posterior decompression fusion at the lower lumbar spine likely at the L3-L4 level with pedicle screws and rods. The hardware appears intact. The exact level is difficult to determine due to the spot image. IMPRESSION: Fluoroscopic assistance provided for posterior decompression and fusion within the lumbar spine as described above. ACT 112: Negative or not required by law. Electronically signed by: Luis Antonio Greer M.D. 07/08/2021 2:54 PM KUB X-Ray 07/09/21 09:02 KUB HISTORY: Nausea. Vomiting. COMPARISON: Abdomen and pelvis CT 11/01/2013. FINDINGS: Severe gaseous distention of the stomach. Remaining loops of large and small bowel are not significantly dilated. L3-L4 posterior decompression and fus ion with a percutaneous drain is noted. No renal calculi. No ureteral calculi. No pneumoperitoneum or pneumatosis. IMPRESSION: Severe gaseous distention of the stomach. Decompression with a nasogastric tube is recommended. This report was called/faxed to the referring physician following dictation. ACT 112: Negative or not required by law. Electronically signed by: Luis Antonio Greer M.D. 07/09/2021 9:56 AM PG Care Time/CCT Total # of Minutes Spent Total Time Spent with Patient: Total time spent is greater than 50% in coordination of care (as documented) at patient's floor/unit and/or counseling patient: Coding Level of Care Code 31288 Subseq Hosp Care Lvl 3 Diagnoses Neurogenic claudication due to lumbar spinal stenosis M48.062 HTN (hypertension) I10 CAD (coronary artery disease) I25.10 GERD (gastroesophageal reflux disease) K21.9 Obesity E66.9 Ileus K56.7
[2021-07-09] MEDS: MAGNESIUM SULFATE / D5W 1 GM/100 ML BAG IV SCH ×4 (08:49→16:10)
[2021-07-09] MEDS ORDERED: PANTOprazole 40 MG TAB PO SCH (09:00)
[2021-07-09] MEDS ORDERED: LOSARTAN POTASSIUM 50 MG TAB PO SCH (09:00)
--- NOTE | 2021-07-09 09:17 | Electrocardiogram Report ---
Test Reason : Blood Pressure : / mmHG Vent. Rate : 075 BPM Atrial Rate : 075 BPM P-R Int : 202 ms QRS Dur : 136 ms QT Int : 604 ms P-R-T Axes : 053 -28 015 degrees QTc Int : 674 ms Normal sinus rhythm Non-specific intra-ventricular conduction block Diffuse Minor Nonspecific T wave abnormality Abnormal ECG When compared with ECG of 16-APR-2021 14:43, Nonspecific T wave abnormality now present Anterior leads Confirmed by Thai Olvera ([id number]) on 07/09/2021 9:16:36 AM Referred By: Gorge Redman Confirmed By:Thai Olvera
--- NOTE | 2021-07-09 09:57 | XRay Report ---
KUB HISTORY: Nausea. Vomiting. COMPARISON: Abdomen and pelvis CT 11/01/2013. FINDINGS: Severe gaseous distention of the stomach. Remaining loops of large and small bowel are not significantly dilated. L3-L4 posterior decompression and fusion with a percutaneous drain is noted. No renal calculi. No ureteral calculi. No pneumoperitoneum or pneumatosis. IMPRESSION: Severe gaseous distention of the stomach. Decompression with a nasogastric tube is recommended. This report was called/faxed to the referring physician following dictation. ACT 112: Negative or not required by law. Electronically signed by: Luis Antonio Greer M.D. 07/09/2021 9:56 AM
[2021-07-09] MEDS ORDERED: PROMETHAZINE HCL 6.25 MG in SODIUM CHLORIDE 0.9% 50 ML IV PRN (10:00)
--- NOTE | 2021-07-09 10:06 | Operative Report ---
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 #3 revision decompression with bilateral medial facetectomies and foraminotomies L2-L3 L3-L4. #4 posterior spinal fusion L3-L4. #5 placement posterior instrumentation L3-L4. #6 placement locally harvested morselized autograft in the posterior gutters. #7 placement infuse collagen sponge, master graft in the posterior lateral gutters. Surgeon Gorge Redman DO [employer] Sniper None Estimated Blood Loss 300 Findings Consistent with Post-Op Diagnosis Specimens None Indications This is a 76-year-old male presents with diagnosis after failing course of nonoperative care is here for the above intraprocedure. Description of Procedure Patient was met with identified informed consent obtained. Patient was then taken to the operative suite underwent ablation placed in a prone position adjustable top [place] frame. All bony prominences well-padded eyes inspected to ensure no external pressure placed monitor at this point lumbar spine was prepped and draped in a sterile fashion. Sharp dissection with the assistance of Bovie cautery performed to expose the lamina transverse processes of L3-L4 and instrumentation at L4-L5 bilaterally. Then proceeded to remove the hardware bilaterally explore the fusion mass noted to be mature and intact. Informed revision complete laminectomy with bilateral medial facetectomies and foraminotomies at L3-L4 and partial laminectomy medial facetectomies at L2-L3. An incidental durotomy was noted secondary to marked dural ectasia on the right at the 3 4 facet as the bone had eroded into the dura. That was repaired with a DuraGen patch and DuraSeal. Pedicle screws then placed in L3-L4 bilaterally with assistance of fluoroscopy and the proper sized varun locked in place. Transverse processes of L3 and L4 burred to subcortical bleeding bone. Infuse collagen sponge and master graft was placed in the posterior gutters. 15 round LAURA drain inserted. Incision was closed with 1 Vicryl to fascia 2-0 Vicryl subcutaneously and 4 Monocryl for final closure. Steri-Strips dressings placed. Patient will continue to PACU stable condition. Please note spinal cord monitoring was utilized at the procedure no changes noted. I attest to the content of the Intraoperative Record and any orders documented therein. Any exceptions are noted below.
[2021-07-09] MEDS ORDERED: hydrALAZINE HCL 20 MG/ML VIAL IV PRN (10:23)
--- NOTE | 2021-07-09 10:51 | Surgery Consultation ---
Date of Consultation July 09, 2021 Assessment & Plan (1) Acute distention of stomach: I personally tried to insert an NG tube through the right nostril initial passage was curled in his mouth during the procedure the patient had multiple episodes of vomiting similar to what he had when the tried to insert the NG tube in left nostril Multiple tries to the right nostril I met some resistance at about 50 cm or less Reevaluating the patient's abdomen is a little bit softer and he feels like it is not as distended I think he still needs an NG tube placed ileus likely related to laminectomy therefore we will ask supervisor coin machine to see patient do endoscopy and place an NG tube and direct visualization of possible I talk with the supervisor coin machine personally and he will evaluate the patient History of Present Illness Attending Physician: Gorge Redman, DO History of Present Illness Gastric distention status post laminectomy approximately 24 hours ago The patient apparently started having some abdominal distention last evening progressively worse a KUB was ordered today and show significant gastric distention Allergies Allergy/AdvReac Type Severity Reaction Status Date / Time No Known Allergies Allergy Unknown Verified 07/08/21 08:19 Home Medications Medication Instructions Recorded Confirmed Type aspirin 81 mg tablet,delayed 81 mg PO QAM 04/12/21 07/08/21 History release ezetimibe 10 mg tablet 10 mg PO QPM 04/12/21 07/08/21 History isosorbide mononitrate 30 mg 30 mg PO QAM 04/12/21 07/08/21 History tablet,extended release 24 hr losartan 50 mg-hydrochlorothiazide 1 tab PO QPM 04/12/21 07/08/21 History 12.5 mg tablet metoprolol succinate 25 mg 25 mg PO QPM 04/12/21 07/08/21 History tablet,extended release 24 hr omeprazole 20 mg tablet,delayed 20 mg PO QAM 04/12/21 07/08/21 History release rosuvastatin 20 mg tablet 20 mg PO QPM 04/12/21 07/08/21 History Patient History Medical History (Updated 07/09/21 @ 10:49 by Parveen Jones MD, FACS) CAD (coronary artery disease) - Per cardio records= "2010 left heart catheterization performed demonstrating 70 -80% ostial stenosis of the obtuse marginal branch. Patient was noted to have approximately 50% left main as well as a 60% distal LAD stenosis. Patient subsequently had an IVUS performed by Dr. Elizabeth demonstrating minimal left main area of 7.76 mm2. The distal left anterior descending artery area was found to be 3.58. The obtuse marginal stenosis was not intervened secondary to its location and poor risk to benefit ratio." -Currently under medical management by cardio DDD (degenerative disc disease) GERD (gastroesophageal reflux disease) Hearing deficit hearing aids bilat History of COVID-17 JULY 2020>MILD SYMPTOMS *FEELING BETTER HLD (hyperlipidemia) HTN (hypertension) Obesity Osteoarthritis Spinal stenosis Surgical History History of Achilles tendon repair Lt History of arthroscopic surgery of elbow Rt History of arthroscopy of right knee x 2 History of cardiac cath 2010 - [place] - CP - no stents History of colonoscopy History of lumbar fusion History of rotator cuff surgery RT/LEFT Family History Other No family history of adverse response to anesthesia Social History Smoking Status: Never smoker Second Hand Exposure: No; Hx Alcohol Use: No Hx Substance Use: No Preferred Language: Belarusian Communication Ability: Effective [employer] Employee Required: No Beliefs That Will Affect Care: None Current Living Situation: Spouse Feels Safe at Home: Yes Assistive Devices: Hearing Aid - Bilateral Physical Exam Physical Exam: Patient at this time is in bed with head of bed elevated about [address] to place an NG tube in through the left nostril were unsuccessful The abdomen is markedly distended tympanic Results & Data ([facility]) Vital Signs (Past 12 Hours) Vital Signs Temp Pulse Resp BP Pulse Ox 07/09/21 07:48 36.6 C 81 16 130/78 95 07/09/21 06:46 37.0 C 72 16 158/59 H 92 07/09/21 03:24 37.0 C 70 18 110/79 95 07/09/21 01:27 36.5 C 94 H 16 147/78 H 94 07/09/21 01:25 121/45 L 07/09/21 01:04 36.5 C 68 18 135/74 96 PG Care Time/CCT Total # of Minutes Spent Total Time Spent with Patient: Total time spent is greater than 50% in coordination of care (as documented) at patient's floor/unit and/or counseling patient: Coding Level of Care Code 54689 Initial Inpt Care Lvl 3 Diagnoses Acute distention of stomach K31.0
[2021-07-09] MEDS: PANTOprazole 40 MG in SYRINGE 0 ML IV SCH (11:01)
[2021-07-09] MEDS: POTASSIUM CHLORIDE 20 MEQ in SODIUM CHLORIDE 0.9% 1000ML 1,000 ML IV SCH ×2 (11:07→23:28)
--- NOTE | 2021-07-09 11:27 | Gastrointestinal Consultation ---
Date of Consultation July 09, 2021 Assessment & Plan (1) Acute distention of stomach: (2) Ileus: This is 76-year-old male who underwent lumbar laminectomy yesterday and has developed nausea vomiting, KUB with severe gaseous distention of the stomach. Multiple attempts were made at placing an NG tube at bedside were unsuccessful. We are consulted to consider endoscopy with placement of NG tube. On exam abd is soft but distended, tympanic. Keep patient n.p.o. IVF We will plan urgent EGD today with NG tube placement Thank you for allowing us to participate in the care of this patient. Please call with any acute changes, questions or concerns. Please see addendum below with additional recommendation from my supervising physician. Supervising Physician Co-Signing Physician Notes I performed a history and physical examination of the patient today, including specifically on physical exam - soft abdomen. I have discussed the patient's management with the advanced practitioner. Please refer to the nurse practitioner's note for the documented findings and plan of care. EGD today for gastric decompression and NG tube placement Patient was explained in detail regarding risks, benefits, limitations and alternatives of the above endoscopic procedure. Risks of intravenous sedation used for procedure were also explained. Risks include, but not limited to perforation, bleeding, infection, respiratory distress, cardiac arrest and . Patient is also aware about the possibility of missed lesion. Patient's questions were answered. The patient verbalized understanding the information and agreed to undergo the procedure. History of Present Illness Reason for Consultation: gastric distention unable to passs ng tube Requesting Physician: Dr. Jones Attending Physician: Gorge Redman, DO History of Present Illness This is 72-year-old male with history of CAD, HTN, GERD, neurogenic claudication, and others, underwent lumbar laminectomy yesterday and experienced nausea vomiting, KUB with severe gaseous distended in the stomach, multiple attempts made to place NGT at bedside were unsuccessful. We are consulted to evaluate the patient for endoscopy with placement of NGT. On exam he is resting in bed w/ soft abd, but distended and tympanic. He denies abd pain, he had some n/v earlier but none now. No CP, SOB, fever, chills, hematemesis. No flatus. No BM. At home denies AC, Tobacco, ETHO use. Allergies Allergy/AdvReac Type Severity Reaction Status Date / Time No Known Allergies Allergy Unknown Verified 07/09/21 13:40 Home Medications Medication Instructions Recorded Confirmed Type aspirin 81 mg tablet,delayed 81 mg PO QAM 04/12/21 07/08/21 History release ezetimibe 10 mg tablet 10 mg PO QPM 04/12/21 07/08/21 History isosorbide mononitrate 30 mg 30 mg PO QAM 04/12/21 07/08/21 History tablet,extended release 24 hr losartan 50 mg-hydrochlorothiazide 1 tab PO QPM 04/12/21 07/08/21 History 12.5 mg tablet metoprolol succinate 25 mg 25 mg PO QPM 04/12/21 07/08/21 History tablet,extended release 24 hr omeprazole 20 mg tablet,delayed 20 mg PO QAM 04/12/21 07/08/21 History release rosuvastatin 20 mg tablet 20 mg PO QPM 04/12/21 07/08/21 History Patient History Medical History CAD (coronary artery disease) - Per cardio records= "2010 left heart catheterization performed demonstrating 70 -80% ostial stenosis of the obtuse marginal branch. Patient was noted to have approximately 50% left main as well as a 60% distal LAD stenosis. Patient subsequently had an IVUS performed by Dr. Elizabeth demonstrating minimal left main area of 7.76 mm2. The distal left anterior descending artery area was found to be 3.58. The obtuse marginal stenosis was not intervened secondary to its location and poor risk to benefit ratio." -Currently under medical management by cardio DDD (degenerative disc disease) GERD (gastroesophageal reflux disease) Hearing deficit hearing aids bilat History of COVID-17 JULY 2020>MILD SYMPTOMS *FEELING BETTER HLD (hyperlipidemia) HTN (hypertension) Obesity Osteoarthritis Spinal stenosis Surgical History History of Achilles tendon repair Lt History of arthroscopic surgery of elbow Rt History of arthroscopy of right knee x 2 History of cardiac cath 2010 - [place] - CP - no stents History of colonoscopy History of lumbar fusion History of rotator cuff surgery RT/LEFT Family History Other No family history of adverse response to anesthesia Social History (Reviewed 07/08/21 @ 18:24 by LINDA Rayo Smoking Status: Never smoker Second Hand Exposure: No; Hx Alcohol Use: No Hx Substance Use: No Preferred Language: Faroese Communication Ability: Effective Lockstitch Collar Setter Required: No Beliefs That Will Affect Care: None Current Living Situation: Spouse Feels Safe at Home: Yes Assistive Devices: Hearing Aid - Bilateral Physical Exam Constitutional: WD/WN, vitals as above Respiratory: normal respiratory effort, lungs clear to auscultation Cardiovascular: RRR, no murmur, no edema Gastrointestinal (Abdomen): Soft, but markedly distended, tympanic, BS somewhat diminished Skin: no rashes, warm and dry Psychiatric: A+Ox3, euthymic affect Results & Data ([facility]) Vital Signs (Past 12 Hours) Vital Signs Temp Pulse Resp BP Pulse Ox 07/09/21 07:48 36.6 C 81 16 130/78 95 07/09/21 06:46 37.0 C 72 16 158/59 H 92 07/09/21 03:24 37.0 C 70 18 110/79 95 07/09/21 01:27 36.5 C 94 H 16 147/78 H 94 07/09/21 01:25 121/45 L 07/09/21 01:04 36.5 C 68 18 135/74 96 Laboratory Results 07/09/21 07/09/21 07/09/21 Range/Units 08:22 06:13 06:13 WBC 11.40 H (4.8-10.8) K/uL RBC 4.23 L (4.7-6.1) M/uL Hgb 13.4 L (14.0-18.0) g/dL Hct 39.1 L (42-52) % MCV 92.4 (80-100) fL MCH 31.7 (25-34) pg MCHC 34.3 (32-36) g/dL RDW Std Deviation 42.2 (36.4-46.3) fL RDW Coeff of Rupali 12.4 (11.5-14.5) % Plt Count 205 (130-400) K/uL MPV 9.3 (7.4-10.4) fL Immature Gran % (Auto) 0.2 % Neut % (Auto) 90.7 % Lymph % (Auto) 3.8 % [place] % (Auto) 5.3 % Eos % (Auto) 0.0 % Baso % (Auto) 0.0 % Neut # (Auto) 10.35 H (1.4-6.5) K/uL Lymph # (Auto) 0.43 L (1.2-3.4) K/uL [place] # (Auto) 0.60 H (0.11-0.59) K/uL Eos # (Auto) 0.00 (0-0.5) K/uL Baso # (Auto) 0.00 (0-0.2) K/uL Immature Gran # (Auto) 0.02 (0.00-0.02) K/uL Sodium 138 (136-145) mmol/L Potassium 4.0 (3.5-5.1) mmol/L Chloride 106 (98-107) mmol/L Carbon Dioxide 25 (21-32) mmol/L Anion Gap 7 (3-11) BUN 19 (6-23) mg/dl Creatinine 0.76 (0.6-1.4) mg/dl Est Cr Clr Drug Dosing 100.2 ml/min Est GFR ( Amer) 104.2 ml/min Est GFR (Non-Af Amer) 89.9 ml/min BUN/Creatinine Ratio 25.0 H (10-20) Glucose 132 H (70-99(Fasting)) mg/dl POC Glucose 129 H (70-99) mg/dl Calcium 8.7 (8.5-10.1) mg/dl Magnesium 1.6 L (1.7-2.4) mg/dl Urine Color Urine Appearance (Clear) Urine pH (4.5-7.5) Ur Specific [place] (1.000-1.030) Urine Protein (Negative) Urine Glucose (UA) (Negative) Urine Ketones (Negative) Urine Blood (Negative) Urine Nitrite (Negative) Urine Bilirubin (Negative) Urine Urobilinogen (Negative) Ur Leukocyte Esterase (Negative) Urine WBC (Auto) (0-5) /hpf Urine RBC (Auto) (0-4) /hpf U Hyaline Cast (Auto) (0-5) /lpf U Epithel Cells (Auto) (0-5) /lpf Urine Bacteria (Auto) (Negative) 07/09/21 07/08/21 Range/Units 04:08 20:19 WBC (4.8-10.8) K/uL RBC (4.7-6.1) M/uL Hgb (14.0-18.0) g/dL Hct (42-52) % MCV (80-100) fL MCH (25-34) pg MCHC (32-36) g/dL RDW Std Deviation (36.4-46.3) fL RDW Coeff of Rupail (11.5-14.5) % Plt Count (130-400) K/uL MPV (7.4-10.4) fL Immature Gran % (Auto) % Neut % (Auto) % Lymph % (Auto) % [place] % (Auto) % Eos % (Auto) % Baso % (Auto) % Neut # (Auto) (1.4-6.5) K/uL Lymph # (Auto) (1.2-3.4) K/uL [place] # (Auto) (0.11-0.59) K/uL Eos # (Auto) (0-0.5) K/uL Baso # (Auto) (0-0.2) K/uL Immature Gran # (Auto) (0.00-0.02) K/uL Sodium (136-145) mmol/L Potassium (3.5-5.1) mmol/L Chloride (98-107) mmol/L Carbon Dioxide (21-32) mmol/L Anion Gap (3-11) BUN (6-23) mg/dl Creatinine (0.6-1.4) mg/dl Est Cr Clr Drug Dosing ml/min Est GFR ( Amer) ml/min Est GFR (Non-Af Amer) ml/min BUN/Creatinine Ratio (10-20) Glucose (70-99(Fasting)) mg/dl POC Glucose 129 H (70-99) mg/dl Calcium (8.5-10.1) mg/dl Magnesium (1.7-2.4) mg/dl Urine Color Yellow Urine Appearance Clear (Clear) Urine pH 6.0 (4.5-7.5) Ur Specific [place] 1.024 (1.000-1.030) Urine Protein Negative (Negative) Urine Glucose (UA) Negative (Negative) Urine Ketones Negative (Negative) Urine Blood 2+ H (Negative) Urine Nitrite Negative (Negative) Urine Bilirubin Negative (Negative) Urine Urobilinogen Negative (Negative) Ur Leukocyte Esterase Trace H (Negative) Urine WBC (Auto) 10-30 H (0-5) /hpf Urine RBC (Auto) 10-30 H (0-4) /hpf U Hyaline Cast (Auto) 1-5 (0-5) /lpf U Epithel Cells (Auto) 10-20 H (0-5) /lpf Urine Bacteria (Auto) Negative (Negative) Diagnostic Findings KUB: FINDINGS: Severe gaseous distention of the stomach. Remaining loops of large and small bowel are not significantly dilated. L3-L4 posterior decompression and fusion with a percutaneous drain is noted. No renal calculi. No ureteral calculi. No pneumoperitoneum or pneumatosis. IMPRESSION: Severe gaseous distention of the stomach. Decompression with a nasogastric tube is recommended. This report was called/faxed to the referring physician following dictation.
--- NOTE | 2021-07-09 13:11 | Anesthesiology Consultation ---
Date of Service July 09, 2021 Assessment & Plan (1) Encounter for pre-operative examination: History Surgery Operation Date: 07/08/21 09:45 Proposed Procedures p L3-L4 Decompression and Fusion, L4-L5 Hardware Removal - Gorge Redman DO Operation Date: 07/09/21 11:40 Proposed Procedures p Esophagogastroduodenoscopy - Jeff Hale MD Height/Weight Height: 5 ft 10.5 in Weight: 96.434 kg Allergies Allergy/AdvReac Type Severity Reaction Status Date / Time No Known Allergies Allergy Unknown Verified 07/08/21 08:19 Medications Home Medications Medication Instructions Recorded Confirmed Last Taken aspirin 81 mg tablet,delayed 81 mg PO QAM 04/12/21 07/08/21 07/08/21 06:30 release ezetimibe 10 mg tablet 10 mg PO QPM 04/12/21 07/08/21 07/07/21 21:30 isosorbide mononitrate 30 mg 30 mg PO QAM 04/12/21 07/08/21 07/08/21 06:30 tablet,extended release 24 hr losartan 50 mg-hydrochlorothiazide 1 tab PO QPM 04/12/21 07/08/21 07/07/21 21:30 12.5 mg tablet metoprolol succinate 25 mg 25 mg PO QPM 04/12/21 07/08/21 07/07/21 21:30 tablet,extended release 24 hr omeprazole 20 mg tablet,delayed 20 mg PO QAM 04/12/21 07/08/21 07/08/21 06:30 release rosuvastatin 20 mg tablet 20 mg PO QPM 04/12/21 07/08/21 07/07/21 21:30 Active Medications Generic Name Dose Route Start Last Admin Trade Name Freq PRN Reason Stop Dose Admin Ezetimibe 10 mg 07/08/21 21:00 07/08/21 21:04 Ezetimibe 10 Mg Tablet PO 08/07/21 20:59 10 mg QPM YESSENIA Administration Hydromorphone HCl 0.5 mg 07/08/21 17:45 07/09/21 12:09 Hydromorphone Inj 0.5 Mg/0.5 Ml Syr IV 07/22/21 17:44 0.5 mg Q2H PRN Administration Pain Dexamethasone 6 mg/ Syringe 1.5 mls @ 1 mls/min 07/09/21 09:00 07/09/21 07:35 IV 08/08/21 08:59 1 mls/min DAILY YESSENIA Administration Pantoprazole Sodium 40 mg/ 10 mls @ 5 mls/min 07/09/21 11:00 07/09/21 11:01 Syringe IV 08/08/21 10:59 5 mls/min DAILY@1100 YESSENIA Administration Magnesium Sulfate/Dextrose 1 gm in 100 mls @ 50 mls/hr 07/09/21 08:45 03/22 12:54 Magnesium Sulfate / D5w IV 07/09/21 16:44 50 mls/hr Q2H YESSENIA Administration Promethazine HCl 6.25 mg/ 50.25 mls @ 201 mls/hr 07/09/21 10:00 07/09/21 11:02 Sodium Chloride IV 08/08/21 09:59 Infused Q6H PRN Infusion Nausea And Vomiting Potassium Chloride 20 meq/ 1,010 mls @ 100 mls/hr 07/09/21 10:30 07/09/21 11:07 Sodium Chloride IV 08/08/21 10:29 100 mls/hr .Q10H6M YESSENIA Administration Isosorbide Mononitrate 30 mg 07/09/21 09:00 07/09/21 07:35 Isosorbide [place] Extended Rel 30 Mg Tabcr PO 08/08/21 08:59 30 mg QAM YESSENIA Administration Metoprolol Succinate 25 mg 07/08/21 21:00 07/08/21 21:04 Metoprolol Succ 25mg Ext Rel Tab PO 08/07/21 20:59 25 mg QPM YESSENIA Administration Ondansetron HCl 4 mg 07/09/21 01:48 07/09/21 01:59 Ondansetron Inj 2 Mg/Ml 2 Ml Vial IV 08/08/21 01:47 4 mg Q6H PRN Administration Nausea And Vomiting Oxycodone HCl 5 - 10 mg 07/08/21 17:45 07/09/21 01:55 Oxycodone Hcl Ir 5 Mg Tab (Immediate Release) PO 07/22/21 17:44 10 mg Q4H PRN Administration Pain Phenol 1 sprays 07/08/21 20:57 07/08/21 22:02 Chloraseptic 1.4% Soln 180 Ml Btl MT 08/07/21 20:56 1 sprays BID PRN Administration Sore Throat Rosuvastatin Calcium 20 mg 07/08/21 21:00 07/08/21 21:04 Rosuvastatin Calcium 20 Mg Tab PO 08/07/21 20:59 20 mg QPM YESSENIA Administration Tramadol HCl 50 mg 07/08/21 17:46 07/08/21 22:04 Tramadol Hcl 50 Mg Tablet PO 08/07/21 17:45 50 mg Q4H PRN Administration Pain NPO Date Last Intake of Fluids: 07/07/21 Time Last Intake of Fluids: 21:30 Last Intake of Fluids Comment: sip of water 0630 w/meds Date Last Intake of Solids: 07/07/21 Time Last Intake of Solids: 17:30 Past Medical History Medical History CAD (coronary artery disease) - Per cardio records= "2010 left heart catheterization performed demonstrating 70 -80% ostial stenosis of the obtuse marginal branch. Patient was noted to have approximately 50% left main as well as a 60% distal LAD stenosis. Patient subsequently had an IVUS performed by Dr. Elizabeth demonstrating minimal left main area of 7.76 mm2. The distal left anterior descending artery area was found to be 3.58. The obtuse marginal stenosis was not intervened secondary to its location and poor risk to benefit ratio." -Currently under medical management by cardio DDD (degenerative disc disease) GERD (gastroesophageal reflux disease) Hearing deficit hearing aids bilat History of COVID-17 JULY 2020>MILD SYMPTOMS *FEELING BETTER HLD (hyperlipidemia) HTN (hypertension) Obesity Osteoarthritis Spinal stenosis Past Family History Family History Other No family history of adverse response to anesthesia Past Surgical History Surgical History History of Achilles tendon repair Lt History of arthroscopic surgery of elbow Rt History of arthroscopy of right knee x 2 History of cardiac cath 2010 - [place] - [place] - no stents History of colonoscopy History of lumbar fusion History of rotator cuff surgery RT/LEFT Social History Smoking Status: Never smoker Hx Alcohol Use: No Hx Substance Use: No substance use type: does not use Physical Exam Vital Signs Last Vital Signs Temp 36.6 C 07/09/21 07:48 Pulse 81 03/11/22 07:48 Resp 16 07/09/21 07:48 BP 130/78 07/09/21 07:48 Pulse Ox 95 07/09/21 07:48 Testing Laboratory Results 07/09/21 06:13 07/09/21 06:13 Urine Color Yellow 07/09/21 04:08 Urine Appearance Clear (Clear) 07/09/21 04:08 Urine pH 6.0 (4.5-7.5) 07/09/21 04:08 Ur Specific [place] 1.024 (1.000-1.030) 07/09/21 04:08 Urine Protein Negative (Negative) 07/09/21 04:08 Urine Glucose (UA) Negative (Negative) 07/09/21 04:08 Urine Ketones Negative (Negative) 07/09/21 04:08 Urine Nitrite Negative (Negative) 07/09/21 04:08 Ur Leukocyte Esterase Trace (Negative) H 07/09/21 04:08 Urine WBC (Auto) 10-30 /hpf (0-5) H 07/09/21 04:08 Urine RBC (Auto) 10-30 /hpf (0-4) H 07/09/21 04:08 U Hyaline Cast (Auto) 1-5 /lpf (0-5) 07/09/21 04:08 U Epithel Cells (Auto) 10-20 /lpf (0-5) H 07/09/21 04:08 Urine Bacteria (Auto) Negative (Negative) 07/09/21 04:08 Blood Type O Positive 07/08/21 08:32 Antibody Screen NEGATIVE 07/08/21 08:32 07/09/21 07/09/21 12:03 08:22 POC Glucose 133 H 129 H Electrocardiogram Date: 04/16/21 Sinus bradycardia, rate 52 bpm. Non-specific intra-ventricular conduction block No significant change was found when compared with ECG of 11/10/2008. Chest X-Ray Date: 04/16/21 No acute process. Stress Test Date: 05/17/21 Type: DSE Resting EF: 60 to 65% Resting LV Function: normal Resting RWMA: + none Normal pharmacologic stress echocardiogram. No echocardiographic or EKG evidence of myocardial ischemia having achieved heart rate adequate for diagnostic purposes. MPHR 86%. Stress EKG showed no diagnostic ST abnormalitiesThe patient did develop, resolving in recovery, right bundle branch block at higher heart rate resolving in recovery. Mild/concentric LVH. Aortic valve sclerosis mild, without significant aortic valvular stenosis.
[2021-07-09] MEDS ORDERED: LIDOCAINE 2% 2 ML VIAL/AMP(20MG/ML) INFIL ONE (14:09)
[2021-07-09] MEDS ORDERED: ROCURONIUM BROMIDE 10 MG/ML 5 ML VIAL IV ONE (14:09)
[2021-07-09] MEDS ORDERED: SUCCINYLCHOLINE CHLORIDE 20 MG/ML 10 ML VIAL IV ONE (14:09)
[2021-07-09] MEDS ORDERED: PROPOFOL IV EMULSION 10 MG/ML 20 ML VIAL IV ONE (14:09)
--- NOTE | 2021-07-09 14:22 | Orthopedic Progress Note ---
Date of Service July 09, 2021 Assessment & Plan (1) Neurogenic claudication due to lumbar spinal stenosis: Plan: At this time we will maintain bedrest as well as the LAURA drain at least another 24 hours. There was an attempt to place an NG tube however it was unsuccessful and he is going to have it EGD later today. I will reassess him throughout the weekend pending his progress we may initiate physical therapy next few days. Admission and Anticipated Discharge Date Admission Date: July 08, 2021 Subjective Patient complaining mostly of abdominal discomfort nausea vomiting. Denies any headache. He states his leg pain is improved. Physical Exam Physical Exam: On exam he has significant abdominal distention and discomfort. Is neurologically intact testing lower extremities. Results & Data ([facility]) Vital Signs (Past 12 Hours) Vital Signs Temp Pulse Resp BP Pulse Ox 07/09/21 13:36 36.9 C 81 18 154/74 H 92 07/09/21 07:48 36.6 C 81 16 130/78 95 07/09/21 06:46 37.0 C 72 16 158/59 H 92 07/09/21 03:24 37.0 C 70 18 110/79 95
--- NOTE | 2021-07-09 14:46 | Operative Report ---
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 Post-Op Diagnosis: Gastroperesis I identified the patient and participated in the time-out.: Yes Procedure Operation Date: 07/08/21 09:45 Actual Procedures p L3-L4 Decompression and Fusion, , (Not Applicable) - DO rainer Parham L4-L5 Hardware Removal(Not Applicable) - DO rainer Parham Repair of Dural Rear(Not Applicable) - Gorge Redman DO Operation Date: 07/09/21 11:40 Actual Procedures p Esophagogastroduodenoscopy - Jeff Hale MD Surgeon Jeff Hale MD Home Mortgage Disclosure Act Specialist None Estimated Blood Loss 300 Findings See Below (Gastroparesis with retained fluis and debris, suctioned and NG tube placed) Specimens None Description of Procedure EGD I attest to the content of the Intraoperative Record and any orders documented therein. Any exceptions are noted below.
--- NOTE | 2021-07-09 15:03 | GI REPORT ---
Patient Name: Jarek Cervantes Procedure Date: 07/09/2021 2:13 PM Date of : 1945 Admit Type: Inpatient Age: 76 Gender: Male Attending MD: Jeff Hale MD Procedure: Upper GI endoscopy Providers: Jeff Hale MD Referring MD: Parveen Dominguez d.o. Indications: Abnormal abdominal x-ray of the GI tract, Nausea with vomiting, NG tube placement Medicines: General Anesthesia Complications: No immediate complications. Estimated Blood Loss: Estimated blood loss: none. Procedure: Pre-Anesthesia Assessment: - Prior to the procedure, a History and Physical was performed, and patient medications, allergies and sensitivities were reviewed. The patient's tolerance of previous anesthesia was reviewed. - The risks and benefits of the procedure and the sedation options and risks were discussed with the patient. All questions were answered and informed consent was obtained. - Patient identification and proposed procedure were verified prior to the procedure by the physician and the nurse. The procedure was verified in the procedure room. - Pre-procedure physical examination revealed no contraindications to sedation. After obtaining informed consent, the endoscope was passed under direct vision. Throughout the procedure, the patient's blood pressure, pulse, and oxygen saturations were monitored continuously. The Endoscope was introduced through the mouth, and advanced to the second part of duodenum. The upper GI endoscopy was accomplished without difficulty. The patient tolerated the procedure well. Findings: The examined esophagus was normal. Grossly distended stomach with retained fluid was found. Fluid aspiration was performed. An 18 Fr nasogastric tube was placed through the left nares into the esophagus. Under endoscopic guidance, the tube was advanced into the stomach. Placement was confirmed by scope visualization. Tube was taped at 65 cm at the nares. The duodenal bulb and second portion of the duodenum were normal. Impression: - Normal esophagus. - Retained gastric fluid likely due to Gastroparesis. This was suctioned and NG tube was successfully placed. - Normal duodenal bulb and second portion of the duodenum. Recommendation: - Return patient to [facility] for [facility] care. - Keep NG tube to low intermittent suction. - Avoid Opioids. - Consider Prokinetics. Jeff Hale MD 07/09/2021 3:02:35 PM This report has been signed electronically. Note Initiated On: 07/09/2021 2:13 PM Number of Addenda: 0 I attest to the content of the Intraoperative Record and orders documented therein, exceptions below {[id number]}
--- NOTE | 2021-07-09 15:32 | Anesthesiology Progress Note ---
Date of Service July 09, 2021 Anesthesia Post Procedure Vital Signs Vital Signs: Temp Pulse Pulse Resp BP Pulse Ox 07/09/21 13:36 36.9 C 81 18 154/74 H 92 07/09/21 07:48 36.6 C 81 16 130/78 95 07/09/21 06:46 37.0 C 72 16 158/59 H 92 07/09/21 03:24 37.0 C 70 18 110/79 95 07/09/21 01:27 36.5 C 94 H 16 147/78 H 94 07/09/21 01:25 121/45 L 07/09/21 01:04 36.5 C 68 18 135/74 96 07/08/21 21:30 36.5 C 63 18 143/77 H 96 07/08/21 20:30 36.3 C L 84 18 118/76 95 07/08/21 19:29 36.3 C L 70 16 142/76 H 97 07/08/21 18:39 36.3 C L 16 138/73 94 07/08/21 18:00 36.6 C 62 18 147/81 H 97 07/08/21 17:29 36.3 C L 69 18 130/72 94 07/08/21 17:00 36.1 C L 47 L 15 127/66 97 07/08/21 16:45 48 L 20 119/66 97 07/08/21 16:30 45 L 21 123/64 98 07/08/21 16:20 54 L 17 121/71 99 07/08/21 16:10 46 L 18 133/66 95 07/08/21 16:00 36.4 C L 55 L 16 123/70 96 07/08/21 15:50 51 L 14 139/71 98 07/08/21 15:40 49 L 14 137/73 99 Pain Intensity Back: Pain Intensity: 2 Transfer of Care Handoff Completed per policy Notes Mental Status: alert / awake / arousable Patient Amnestic to Procedure: Yes Nausea / Vomiting: adequately controlled Pain: adequately controlled Airway Patency, RR, SpO2: stable & adequate BP & HR: stable & adequate Hydration State: stable & adequate Anesthetic Complications: no major complications apparent and Pt Satisfied with anesthetic care
--- NOTE | 2021-07-09 15:34 | XRay Report ---
XR chest 1V portable CLINICAL HISTORY: Dyspnea TECHNIQUE: Single frontal radiograph of the chest was obtained. Comparison: Comparison is made to chest 2 views 06/17/2020 FINDINGS: Enteric tube side-port and tip is within the stomach. The cardiomediastinal silhouette is normal. The lungs are clear. No evidence of pleural effusion or pneumothorax. Eventration of the right hemidiaph ragm is seen. IMPRESSION: No acute chest disease. ACT 112: Negative or not required by law. Electronically signed by: Melecio Watson M.D. 07/09/2021 3:33 PM
[2021-07-09] MEDS ORDERED: METOCLOPRAMIDE HCL INJ 5 MG/ML 2 ML VIAL IV PRN (17:38)
[2021-07-09] MEDS ORDERED: METOCLOPRAMIDE HCL INJ 5 MG/ML 2 ML VIAL IV ONE (17:38)
[2021-07-09] MEDS: METOPROLOL SUCC 25MG EXT REL TAB PO SCH ×2 (20:35→21:29)
[2021-07-10] MEDS: traMADol HCL 50 MG TABLET PO PRN ×2 (02:42→21:17)
[2021-07-10 07:29] LABS: Hematocrit (blood only) 36.1 % (42-52); Hemoglobin 12.6 g/dL (14.0-18.0); Immature Granulocytes # (auto) 0.01 K/uL (0.00-0.02); Immature Granulocytes % (auto) 0.1 %; Lymphocytes # (auto) 0.51 K/uL (1.2-3.4); Lymphocytes % (auto) 4.5 %; Mean Corpuscular Hemoglobin 32.4 pg (25-34); Mean Corpuscular Hgb Conc 34.9 g/dL (32-36); Mean Corpuscular Volume 92.8 fL (80-100); Mean Platelet Volume 9.1 fL (7.4-10.4); Monocytes # (auto) 0.92 K/uL (0.11-0.59); Neutrophils # (auto) 10.02 K/uL (1.4-6.5); Neutrophils % (auto) 87.4 %; Platelet Count 197 K/uL (130-400); RDW Coefficient of Variation 12.6 % (11.5-14.5); RDW Standard Deviation 42.3 fL (36.4-46.3); Red Blood Count 3.89 M/uL (4.7-6.1); White Blood Count 11.46 K/uL (4.8-10.8)
--- NOTE | 2021-07-10 07:31 | Hospitalist Progress Note ---
Date of Service July 10, 2021 Assessment & Plan (1) Acute distention of stomach: Plan: Occuring POD#1, increased n/v overnight with increased distension and abdominal pain COnsulted general surgery, unable to place NGT at bedside GI consulted --> s/p EGD with NGT placement for large volume. Possible gastroparesis Given reglan 5mg IV last evening, available prn along with phenergan if needed Mag 1.6- ordered replacement, normal on repeat Added K to IVF, continue for now but now passing gas and will give some clear liquids, keep NGT in for now --> can decrease IVF for now Resuming isosorbide given PMHx, but hold all other non-urgent medications Hydralazine available prn for HTN - currently 188/75 but asymptomatic Now passing gas, advancement of activity per primary service Dr Redman to see this morning, possibly can get out of bed later today --> will continue multani/LAURA drain for now Continue to monitor (2) Ileus: Plan: now passing gas s/p NGT for acute gaseous distension as above (3) Neurogenic claudication due to lumbar spinal stenosis: Plan: POD#2 S/P #1 removal of posterior instrumentation L4-5 per #2 exploration of fusion L4-5. #3 revision decompression with bilateral medial facetectomies and foraminotomies L2-L3 L3-L4. #4 posterior spinal fusion L3-L4. #5 placement posterior instrumentation L3-L4. #6 placement locally harvested morselized autograft in the posterior gutters. #7 placement infuse collagen sponge, master graft in the posterior lateral gutters. EBL 300cc. Also with 2 durotomy on OP report See #1 for post-op complication Decadron IV, LAURA drain/multani per primary service Hgb stable -- acute blood loss anemia from surgery/dilutional from IVF IVF while advancing diet as above, keep NGT for now Laying flat currently, advancement of activity per Dr Redman Asked RN to give incentive spirometer PT/OT per primary (4) HTN (hypertension): Plan: BP elevated but asymptomatic Continue metoprolol, hold diuretic Hydralazine available prn (5) CAD (coronary artery disease): Plan: History of CAD- Cath 2014 with 70-80% Om, 50% LT Main, 60% LAD, with IVUS - medical managment ASA on hold until hemostasis ensured by primary service- Continued BB Statin on hold while NPO, as well as JOSE/HCTZ No CP/SOB reported Monitor (6) GERD (gastroesophageal reflux disease): Plan: Protonix 40mg IV while NPO, consider increasing to BID if needed while NPO on decadron Mag 1.6 as above, replacement ordered and keeping ~2 for #1 Repeat wnl and will monitor (7) Obesity: Plan: Continue with weight reduction goals to decrease manager women CV morbidity Plan: Hospitalist service will follow along Clamping NGT for now but to remain in place, will give some clears and see how he does Dr Redman to see later this morning Admission and Anticipated Discharge Date Admission Date: July 08, 2021 Supervising Physician Co-Signing Physician Notes Attending Attestation - Chart reviewed in detail, care plan d/w PA Brittney López. I agree w/ the arriaga components of her documentation. Vicente Rust MD Subjective Patient evaluated this morning. s/p NGT placed in endoscopy yesterday, remains in place and NGT output decreased. No further abdominal pain, less distension, non-tender. Some throat irritation from tube placement but discussed keeping in for now but could possibly discontinue later today. Discussed messaging Dr Redman to see if can attempt to get up out of bed today. He will be in to see him shortly and hopefully able to get him up and moving. Leg symptoms well controlled. LAURA drain he doesn't believe had to be emptied yet today, approximately 30cc bloody drainage present. No fever, chills, chest pain, shortness of breath or other symptoms at this time. Questions/concerns addressed at this time. Review of Systems Review of Systems: All systems reviewed & are unremarkable except as noted in HPI & below Physical Exam Physical Exam: Geneal: 76yo male, WN, WD, laying in bed, NAD ENT: NGT to nares, draining minimal yellow/brown drainage Resp: CTAB, diminished in the bases, no w/c/r, on room air CV: RRR, no m/r/g, pulses present bilaterally GI: +BS throughout, less distension, soft/non-tender, no guarding/rigidity : multani patent draining yellow urine MSK:dressing to spine intact, LAURA with blood drainage, laying flat in bed per orthopedic instructions, b/l LE strength equal and intact dorsiflexion/plantar flexion, did not get up out of bed due to activity restriction Skin: warm, dry Psych: alert, oriented x3, pleasant and cooperative Results & Data Results & Data ([facility]) Vital Signs (Past 12 Hours) Vital Signs Temp Pulse Resp BP Pulse Ox 07/10/21 03:09 36.5 C 69 16 155/76 H 94 07/09/21 23:04 36.6 C 76 18 139/76 95 07/09/21 20:33 76 154/71 H 94 Laboratory Results 07/10/21 07/10/21 07/10/21 Range/Units 06:57 06:57 06:26 WBC 11.46 H (4.8-10.8) K/uL RBC 3.89 L (4.7-6.1) M/uL Hgb 12.6 L (14.0-18.0) g/dL Hct 36.1 L (42-52) % MCV 92.8 (80-100) fL MCH 32.4 (25-34) pg MCHC 34.9 (32-36) g/dL RDW Std Deviation 42.3 (36.4-46.3) fL RDW Coeff of Rupali 12.6 (11.5-14.5) % Plt Count 197 (130-400) K/uL MPV 9.1 (7.4-10.4) fL Immature Gran % (Auto) 0.1 % Neut % (Auto) 87.4 % Lymph % (Auto) 4.5 % Williamson % (Auto) 8.0 % Eos % (Auto) 0.0 % Baso % (Auto) 0.0 % Neut # (Auto) 10.02 H (1.4-6.5) K/uL Lymph # (Auto) 0.51 L (1.2-3.4) K/uL Williamson # (Auto) 0.92 H (0.11-0.59) K/uL Eos # (Auto) 0.00 (0-0.5) K/uL Baso # (Auto) 0.00 (0-0.2) K/uL Immature Gran # (Auto) 0.01 (0.00-0.02) K/uL Sodium 137 (136-145) mmol/L Potassium 4.0 (3.5-5.1) mmol/L Chloride 107 (98-107) mmol/L Carbon Dioxide 24 (21-32) mmol/L Anion Gap 6 (3-11) BUN 19 (6-23) mg/dl Creatinine 0.69 (0.6-1.4) mg/dl Est Cr Clr Drug Dosing 110.4 ml/min Est GFR ( Amer) 108.4 ml/min Est GFR (Non-Af Amer) 93.5 ml/min BUN/Creatinine Ratio 27.5 H (10-20) Glucose 115 H (70-99(Fasting)) mg/dl POC Glucose 126 H (70-99) mg/dl Calcium 7.7 L (8.5-10.1) mg/dl Magnesium 2.2 (1.7-2.4) mg/dl 07/10/21 07/09/21 07/09/21 Range/Units 00:10 17:21 12:03 WBC (4.8-10.8) K/uL RBC (4.7-6.1) M/uL Hgb (14.0-18.0) g/dL Hct (42-52) % MCV (80-100) fL MCH (25-34) pg MCHC (32-36) g/dL RDW Std Deviation (36.4-46.3) fL RDW Coeff of Rupali (11.5-14.5) % Plt Count (130-400) K/uL MPV (7.4-10.4) fL Immature Gran % (Auto) % Neut % (Auto) % Lymph % (Auto) % Williamson % (Auto) % Eos % (Auto) % Baso % (Auto) % Neut # (Auto) (1.4-6.5) K/uL Lymph # (Auto) (1.2-3.4) K/uL Williamson # (Auto) (0.11-0.59) K/uL Eos # (Auto) (0-0.5) K/uL Baso # (Auto) (0-0.2) K/uL Immature Gran # (Auto) (0.00-0.02) K/uL Sodium (136-145) mmol/L Potassium (3.5-5.1) mmol/L Chloride (98-107) mmol/L Carbon Dioxide (21-32) mmol/L Anion Gap (3-11) BUN (6-23) mg/dl Creatinine (0.6-1.4) mg/dl Est Cr Clr Drug Dosing ml/min Est GFR ( Amer) ml/min Est GFR (Non-Af Amer) ml/min BUN/Creatinine Ratio (10-20) Glucose (70-99(Fasting)) mg/dl POC Glucose 120 H 132 H 133 H (70-99) mg/dl Calcium (8.5-10.1) mg/dl Magnesium (1.7-2.4) mg/dl Diagnostic Findings KUB X-Ray 07/09/21 09:02 KUB HISTORY: Nausea. Vomiting. COMPARISON: Abdomen and pelvis CT 11/01/2013. FINDINGS: Severe gaseous distention of the stomach. Remaining loops of large and small bowel are not significantly dilated. L3-L4 posterior decompression and fusion with a percutaneous drain is noted. No renal calculi. No ureteral calculi. No pneumoperitoneum or pneumatosis. IMPRESSION: Severe gaseous distention of the stomach. Decompression with a nasogastric tube is recommended. This report was called/faxed to the referring physician following dictation. ACT 112: Negative or not required by law. Electronically signed by: Luis Antonio Greer M.D. 07/09/2021 9:56 AM Chest X-Ray 07/09/21 15:16 XR chest 1V portable CLINICAL HISTORY: Dyspnea TECHNIQUE: Single frontal radiograph of the chest was obtained. Comparison: Comparison is made to chest 2 views 06/17/2020 FINDINGS: Enteric tube side-port and tip is within the stomach. The cardiomediastinal silhouette is normal. The lungs are clear. No evidence of pleural effusion or pneumothorax. Eventration of the right hemidiaphragm is seen. IMPRESSION: No acute chest disease. ACT 112: Negative or not required by law. Electronically signed by: Melecio Watson M.D. 07/09/2021 3:33 PM PG Care Time/CCT Total # of Minutes Spent Total Time Spent with Patient: Total time spent is greater than 50% in coordination of care (as documented) at patient's floor/unit and/or counseling patient: Coding Level of Care Code 79614 Subseq Hosp Care Lvl 3 Diagnoses Ileus K56.7 Neurogenic claudication due to lumbar spinal stenosis M48.062 HTN (hypertension) I10 CAD (coronary artery disease) I25.10 GERD (gastroesophageal reflux disease) K21.9 Obesity E66.9 Acute distention of stomach K31.0
[2021-07-10] MEDS: dexAMETHasone 6 MG in SYRINGE 0 ML IV SCH (07:46)
[2021-07-10 07:52] LABS: BUN Creatinine Ratio 27.5 (10-20); Calcium 7.7 mg/dl (8.5-10.1); Creatinine Clr Calc Pharmacy 110.4 ml/min; Est GFR (African American) 108.4 ml/min; Est GFR (Non-African American) 93.5 ml/min; Magnesium 2.2 mg/dl (1.7-2.4)
[2021-07-10] MEDS ORDERED: Nursing to Pharmacy Communication SCH (09:15)
[2021-07-10] MEDS ORDERED: ISOSORBIDE MONO EXTENDED REL 30 MG TABCR PO ONE (09:45)
[2021-07-10] MEDS: POTASSIUM CHLORIDE 20 MEQ in SODIUM CHLORIDE 0.9% 1000ML 1,000 ML IV SCH ×2 (09:50→22:47)
--- NOTE | 2021-07-10 10:17 | XRay Report ---
KUB HISTORY: Follow-up. Gastric distention. Nausea. Vomiting. COMPARISON: KUB 07/09/2021. FINDINGS: Stomach is partially visualized on this study. Interval decompression of the stomach which now demonstrates mild gaseous distention. L4-5 posterior decompression fusion hardware with an overly ing surgical drain. Multiple bilateral renal calculi are noted. There is a 7 mm calcification within the right deep pelvis. This could represent a distal right ureteral stone or phlebolith. The bowel ga s pattern is unremarkable. No evidence for bowel obstruction. No pneumoperitoneum or pneumatosis. IMPRESSION: 1. Mild gaseous distention of the stomach which has improved in the interval. 2. Bilateral nephrolithiasis. There is a 7 mm calcification within the right deep pelvis which could represent a distal right ureteral stone. Follow-up renal ultrasound recommended for further evaluatio n. ACT 112: Negative or not required by law. Electronically signed by: Luis Antonio Greer M.D. 07/10/2021 10:15 AM
--- NOTE | 2021-07-10 10:44 | Surgery Progress Note ---
Date of Service July 10, 2021 Assessment & Plan (1) Acute distention of stomach: Plan: seen with Dr. Jones will clamp NG and try clears...probably leave NG for today given difficult insertion ambulate if ok with primary Admission and Anticipated Discharge Date Admission Date: July 08, 2021 Subjective feels better, some flatus Physical Exam Gastrointestinal (Abdomen): Inspection/Auscultation: abdomen not distended Percussion/Palpation: abdomen soft; abdomen nontender NG 225 overnight Results & Data ([facility]) Vital Signs (Past 12 Hours) Vital Signs Temp Pulse Resp BP Pulse Ox 07/10/21 08:19 36.9 C 89 18 188/75 H 91 07/10/21 03:09 36.5 C 69 16 155/76 H 94 07/09/21 23:04 36.6 C 76 18 139/76 95 PG Care Time/CCT Total # of Minutes Spent Total Time Spent with Patient: Total time spent is greater than 50% in coordination of care (as documented) at patient's floor/unit and/or counseling patient: Coding Level of Care Code 47324 Subseq Hosp Care Lvl 1 Diagnoses Acute distention of stomach K31.0
--- NOTE | 2021-07-10 10:54 | Orthopedic Progress Note ---
Date of Service July 10, 2021 Assessment & Plan (1) Neurogenic claudication due to lumbar spinal stenosis: Plan: At this time we will change dressing discontinue the drain this morning and begin bed to chair room ambulation. Admission and Anticipated Discharge Date Admission Date: July 08, 2021 Subjective Patient's back pain is controlled leg pain markedly improved. Nausea vomiting resolved. Denies any headaches. Physical Exam Physical Exam: On exam abdomen is soft. Is good strength testing. Appears comfortable. Results & Data ([facility]) Vital Signs (Past 12 Hours) Vital Signs Temp Pulse Resp BP Pulse Ox 07/10/21 08:19 36.9 C 89 18 188/75 H 91 07/10/21 03:09 36.5 C 69 16 155/76 H 94 07/09/21 23:04 36.6 C 76 18 139/76 95
[2021-07-10] MEDS: PANTOprazole 40 MG in SYRINGE 0 ML IV SCH (10:55)
[2021-07-10] MEDS ORDERED: METOCLOPRAMIDE HCL 5 MG TABLET PO ONE (16:01)
[2021-07-10] MEDS: METOPROLOL SUCC 25MG EXT REL TAB PO SCH (19:59)
[2021-07-11 06:08] LABS: Hematocrit (blood only) 34.1 % (42-52); Hemoglobin 11.5 g/dL (14.0-18.0); Mean Corpuscular Hemoglobin 31.7 pg (25-34); Mean Corpuscular Hgb Conc 33.7 g/dL (32-36); Mean Corpuscular Volume 93.9 fL (80-100); Mean Platelet Volume 9.3 fL (7.4-10.4); Platelet Count 174 K/uL (130-400); RDW Coefficient of Variation 12.5 % (11.5-14.5); RDW Standard Deviation 43.1 fL (36.4-46.3); Red Blood Count 3.63 M/uL (4.7-6.1); White Blood Count 10.09 K/uL (4.8-10.8)
[2021-07-11 06:29] LABS: BUN Creatinine Ratio 28.6 (10-20); Calcium 7.6 mg/dl (8.5-10.1); Creatinine Clr Calc Pharmacy 108.8 ml/min; Est GFR (African American) 107.8 ml/min; Potassium 4.2 mmol/L (3.5-5.1)
--- NOTE | 2021-07-11 08:15 | Hospitalist Progress Note ---
Date of Service July 11, 2021 Assessment & Plan (1) Acute distention of stomach: Plan: IMPROVED Occurring POD#1 lumbar decompression fusion/hardware removal with increased n/v overnight with increased distension and abdominal pain Consulted general surgery, unable to place NGT at bedside GI consulted --> s/p EGD with NGT placement for large volume. Possible gastroparesis. no masses/strictures observed Given reglan 5mg IV x1, repeat dose today for possible gastroparesis Tolerated clear liquid diet without issue --> advancing to full liquid for today Less distension, no pain, passing gas NGT to remain in place, clamped, possibly d/c tomorrow. General surgery following Encouraging ambulation, cleared with primary Resumed isosorbide, continue metoprolol 25mg daily. Hold losartan/HCTZ until bowel function returns, decreasing IVF to 60cc/hr as eating/drinking and advancement of diet --> Likely could discontinue tomorrow if diet advanced/bowel function continues Encouraged use incentive spirometer Mag replaced, wnl on repeat. Continue to monitor, appreciate general surgery recommendations (2) Ileus: Plan: now passing gas s/p NGT for acute gaseous distension as above, now improved but will keep in given difficulty for placement and hopefully be able to discontinued tomorrow (3) Neurogenic claudication due to lumbar spinal stenosis: Plan: POD#2 S/P #1 removal of posterior instrumentation L4-5 per #2 exploration of fusion L4-5. #3 revision decompression with bilateral medial facetectomies and foraminotomies L2-L3 L3-L4. #4 posterior spinal fusion L3-L4. #5 placement posterior instrumentation L3-L4. #6 placement locally harvested morselized autograft in the posterior gutters. #7 placement infuse collagen sponge, master graft in the posterior lateral gutters. EBL 300cc. Also with 2 durotomy on OP report LAURA removed 3/ Decadron per primary WBC wnl on am labs, afebrile Clear liquid--> full liquid for today, NGT to remain in place as above (See #1 for post-op complication) hgb stable on repeat, 11.5 -- acute blood loss anemia from surgery but has been on continuous IVF as well Activity advanced by primary, encouraged ambulation Encouraged incentive spirometer pain control per primary --> Will add tylenol as needed as only has opiates ordered and believes tylenol should be sufficient Does have some blistering/serous drainage from medipore tape -- does not appear infected but will continue to monitor. Asked RN to change dressing today --Consult wound RN if needed PT/OT ordered (4) HTN (hypertension): Plan: BP elevated but asymptomatic, 157/83 Continue metoprolol, hold diuretics Hydralazine available prn (5) CAD (coronary artery disease): Plan: History of CAD- Cath 2014 with 70-80% Om, 50% LT Main, 60% LAD, with IVUS - medical management ASA on hold until hemostasis ensured by primary service- Continued BB, isosorbide Statin on hold while NPO, as well as JOSE/HCTZ No CP/SOB reported Monitor (6) GERD (gastroesophageal reflux disease): Plan: Protonix 40mg IV while NPO, consider increasing to BID if needed while NPO on decadron --> will switch back to PO now that increased intake -- no increased in reflux symptoms reported Mag 1.6 as above, replacement ordered and keeping ~2 for #1 Mag 2.0 on am labs and will monitor Reglan x 1 today provided to help w/ GI motility (7) Obesity: Plan: Continue with weight reduction goals to decrease longterm CV morbidity Plan: DVT prophylaxis: SCDs, chemical contraindicated and as above Encouraged ambulation -- increased activity per primary continued inpatient stay --> hospitalist service will follow along Admission and Anticipated Discharge Date Admission Date: July 08, 2021 Supervising Physician Co-Signing Physician Notes CHANTAL Supervision Note: I did not personally see or examine the patient today, but I verified all arriaga points of CHANTAL López's assessment and plan with the following exceptions/additions: None Subjective Patient evaluated this morning. Doing well. No further n/v, no abdominal pain. Less distension. Passing lots of gas but no BM. Discussed general surgery would like to remain in for today, can advance to full liquids. If tolerating/bowel function returns can consider pulling tomorrow. Will have RN pull Golden today now that up and ambulating. Had some blisters to where Medipore tape was and dressing does have some saturation with serous fluid and asked RN to change dressing. LAURA drain pulled yesterday. Leg symptoms controlled and has been ambulating to bathroom with much improvement. Great strength b/l LE. Denies any fever, chills, chest pain, shortness of breath, dysuria or other symptoms. Of note, b/l nephrolithiasis on KUB day prior. He does note he has known kidney stones and drinks 24oz lemonade daily and cranberry juice and has been successfully passing these on their own. Discussed could obtain renal U/S for followup vs outpatient follow up. No CVA tenderness. Review of Systems Review of Systems: All systems reviewed & are unremarkable except as noted in HPI & below Physical Exam Physical Exam: General: 76yo male, WN, WD, sitting up in bed, NAD ENT: NGT to nares, clamped Resp: CTAB, diminished in bases, no w/c/r, on room air CV: RRR, no m/r/g, no edema, pulses present bilaterally GI: +BS throughout, less distension, soft, non-tender to palpation MSK: dressing to spine with serous drainage along R aspect, tender to palpation along incision, no further LAURA drain, full strength b/l LE with flexion/extension, ambulating with assistance/walker, NVI Skin: warm, dry, see msk for back dressing Psych: Alert, oriented x 3, calm and cooperative Results & Data Results & Data ([facility]) Vital Signs (Past 12 Hours) Vital Signs Temp Pulse Resp BP Pulse Ox 07/11/21 07:59 37.5 C 65 18 157/83 H 92 07/10/21 22:01 37.1 C 61 16 126/61 91 07/10/21 19:58 68 120/60 92 Laboratory Results 07/11/21 07/11/21 07/11/21 Range/Units 08:05 05:51 05:51 WBC 10.09 (4.8-10.8) K/uL RBC 3.63 L (4.7-6.1) M/uL Hgb 11.5 L (14.0-18.0) g/dL Hct 34.1 L (42-52) % MCV 93.9 (80-100) fL MCH 31.7 (25-34) pg MCHC 33.7 (32-36) g/dL RDW Std Deviation 43.1 (36.4-46.3) fL RDW Coeff of Rupali 12.5 (11.5-14.5) % Plt Count 174 (130-400) K/uL MPV 9.3 (7.4-10.4) fL Immature Gran % (Auto) % Neut % (Auto) % Lymph % (Auto) % Cloud % (Auto) % Eos % (Auto) % Baso % (Auto) % Neut # (Auto) (1.4-6.5) K/uL Lymph # (Auto) (1.2-3.4) K/uL Cloud # (Auto) (0.11-0.59) K/uL Eos # (Auto) (0-0.5) K/uL Baso # (Auto) (0-0.2) K/uL Immature Gran # (Auto) (0.00-0.02) K/uL Sodium 138 (136-145) mmol/L Potassium 4.2 (3.5-5.1) mmol/L Chloride 109 H (98-107) mmol/L Carbon Dioxide 24 (21-32) mmol/L Anion Gap 5 (3-11) BUN 20 (6-23) mg/dl Creatinine 0.70 (0.6-1.4) mg/dl Est Cr Clr Drug Dosing 108.8 ml/min Est GFR ( Amer) 107.8 ml/min Est GFR (Non-Af Amer) 93.0 ml/min BUN/Creatinine Ratio 28.6 H (10-20) Glucose 104 H (70-99(Fasting)) mg/dl POC Glucose 108 H (70-99) mg/dl Calcium 7.6 L (8.5-10.1) mg/dl Magnesium 2.0 (1.7-2.4) mg/dl 07/10/21 07/10/21 07/10/21 Range/Units 20:33 17:08 12:19 WBC (4.8-10.8) K/uL RBC (4.7-6.1) M/uL Hgb (14.0-18.0) g/dL Hct (42-52) % MCV (80-100) fL MCH (25-34) pg MCHC (32-36) g/dL RDW Std Deviation (36.4-46.3) fL RDW Coeff of Rupali (11.5-14.5) % Plt Count (130-400) K/uL MPV (7.4-10.4) fL Immature Gran % (Auto) % Neut % (Auto) % Lymph % (Auto) % Cloud % (Auto) % Eos % (Auto) % Baso % (Auto) % Neut # (Auto) (1.4-6.5) K/uL Lymph # (Auto) (1.2-3.4) K/uL Cloud # (Auto) (0.11-0.59) K/uL Eos # (Auto) (0-0.5) K/uL Baso # (Auto) (0-0.2) K/uL Immature Gran # (Auto) (0.00-0.02) K/uL Sodium (136-145) mmol/L Potassium (3.5-5.1) mmol/L Chloride (98-107) mmol/L Carbon Dioxide (21-32) mmol/L Anion Gap (3-11) BUN (6-23) mg/dl Creatinine (0.6-1.4) mg/dl Est Cr Clr Drug Dosing ml/min Est GFR ( Amer) ml/min Est GFR (Non-Af Amer) ml/min BUN/Creatinine Ratio (10-20) Glucose (70-99(Fasting)) mg/dl POC Glucose 115 H 109 H 134 H (70-99) mg/dl Calcium (8.5-10.1) mg/dl Magnesium (1.7-2.4) mg/dl 07/10/21 07/10/21 Range/Units 06:57 06:57 WBC 11.46 H (4.8-10.8) K/uL RBC 3.89 L (4.7-6.1) M/uL Hgb 12.6 L (14.0-18.0) g/dL Hct 36.1 L (42-52) % MCV 92.8 (80-100) fL MCH 32.4 (25-34) pg MCHC 34.9 (32-36) g/dL RDW Std Deviation 42.3 (36.4-46.3) fL RDW Coeff of Rupali 12.6 (11.5-14.5) % Plt Count 197 (130-400) K/uL MPV 9.1 (7.4-10.4) fL Immature Gran % (Auto) 0.1 % Neut % (Auto) 87.4 % Lymph % (Auto) 4.5 % Cloud % (Auto) 8.0 % Eos % (Auto) 0.0 % Baso % (Auto) 0.0 % Neut # (Auto) 10.02 H (1.4-6.5) K/uL Lymph # (Auto) 0.51 L (1.2-3.4) K/uL Cloud # (Auto) 0.92 H (0.11-0.59) K/uL Eos # (Auto) 0.00 (0-0.5) K/uL Baso # (Auto) 0.00 (0-0.2) K/uL Immature Gran # (Auto) 0.01 (0.00-0.02) K/uL Sodium 137 (136-145) mmol/L Potassium 4.0 (3.5-5.1) mmol/L Chloride 107 (98-107) mmol/L Carbon Dioxide 24 (21-32) mmol/L Anion Gap 6 (3-11) BUN 19 (6-23) mg/dl Creatinine 0.69 (0.6-1.4) mg/dl Est Cr Clr Drug Dosing 110.4 ml/min Est GFR ( Amer) 108.4 ml/min Est GFR (Non-Af Amer) 93.5 ml/min BUN/Creatinine Ratio 27.5 H (10-20) Glucose 115 H (70-99(Fasting)) mg/dl POC Glucose (70-99) mg/dl Calcium 7.7 L (8.5-10.1) mg/dl Magnesium 2.2 (1.7-2.4) mg/dl Diagnostic Findings KUB X-Ray 07/10/21 06:00 KUB HISTORY: Follow-up. Gastric distention. Nausea. Vomiting. COMPARISON: KUB 07/09/2021. FINDINGS: Stomach is partially visualized on this study. Interval decompression of the stomach which now demonstrates mild gaseous distention. L4-5 posterior decompression fusion hardware with an overlying surgical drain. Multiple bilateral renal calculi are noted. There is a 7 mm calcification within the right deep pelvis. This could represent a distal right ureteral stone or phlebolith. The bowel gas pattern is unremarkable. No evidence for bowel obstruction. No pneumoperitoneum or pneumatosis. IMPRESSION: 1. Mild gaseous distention of the stomach which has improved in the interval. 2. Bilateral nephrolithiasis. There is a 7 mm calcification within the right deep pelvis which could represent a distal right ureteral stone. Follow-up renal ultrasound recommended for further evaluation. ACT 112: Negative or not required by law. Electronically signed by: Luis Antonio Greer M.D. 07/10/2021 10:15 AM PG Care Time/CCT Total # of Minutes Spent Total Time Spent with Patient: Total time spent is greater than 50% in coordination of care (as documented) at patient's floor/unit and/or counseling patient: Coding Level of Care Code 96509 Subseq Hosp Care Lvl 3 Diagnoses Acute distention of stomach K31.0 Ileus K56.7 Neurogenic claudication due to lumbar spinal stenosis M48.062 HTN (hypertension) I10 CAD (coronary artery disease) I25.10 GERD (gastroesophageal reflux disease) K21.9 Obesity E66.9
--- NOTE | 2021-07-11 08:57 | Surgery Progress Note ---
Date of Service July 11, 2021 Assessment & Plan (1) Acute distention of stomach: Plan: Patient tolerating NGT clamping and the start of clear liquids KUB performed still showing some gastric distention... formal read not back yet. But would keep NGT in for today... was very difficult to place requiring GI assistance May try some full liquids today w/ NGT clamped Pt seen/examined with Dr. Jones Admission and Anticipated Discharge Date Admission Date: July 08, 2021 Subjective Patient is feeling better. Tolerating clear liquids with NGT clamped. Passing some gas. No BM yet. Physical Exam Physical Exam: awake/alert, NGT in and clamped Gastrointestinal (Abdomen): Percussion/Palpation: abdomen soft; abdomen nontender Results & Data ([facility]) Vital Signs (Past 12 Hours) Vital Signs Temp Pulse Resp BP Pulse Ox 07/11/21 07:59 37.5 C 65 18 157/83 H 92 07/10/21 22:01 37.1 C 61 16 126/61 91 07/10/21 19:58 68 120/60 92 PG Care Time/CCT Total # of Minutes Spent Total Time Spent with Patient: Total time spent is greater than 50% in coordination of care (as documented) at patient's floor/unit and/or counseling patient: Coding Level of Care Code 99640 Subseq Hosp Care Lvl 1 Diagnoses Acute distention of stomach K31.0
--- NOTE | 2021-07-11 09:01 | XRay Report ---
KUB HISTORY: Acute generalized abdominal pain eval sbo COMPARISON: KUB 07/10/2021 FINDINGS: Mild gaseous distention of the stomach. Distal tip of enteric tube projects over the gastri c body. Cardiomegaly. Bilateral renal calculi appear unchanged. 7 mm calcification of the right hemip carolynn is stable. No pneumoperitoneum or pneumatosis. L4-L5 lumbar spinal fusion hardware. Degenerativ e changes of the spine, pelvis and hips. No fracture. IMPRESSION: 1. Unchanged 7 mm calcification of the right hemipelvis, possibly a distal ureteral calculus. 2. Bilateral nephrolithiasis. 3. Distal tip of enteric tube projects over the stomach. ACT 112: Negative or not required by law. The above report was generated using voice recognition software. It may contain grammatical, syntax o r spelling errors. Electronically signed by: William Mckeon M.D. 07/11/2021 9:00 AM
[2021-07-11] MEDS: ISOSORBIDE MONO EXTENDED REL 30 MG TABCR PO SCH (09:13)
[2021-07-11] MEDS: dexAMETHasone 6 MG in SYRINGE 0 ML IV SCH (09:13)
--- NOTE | 2021-07-11 10:55 | Orthopedic Progress Note ---
Date of Service July 11, 2021 Assessment & Plan (1) Neurogenic claudication due to lumbar spinal stenosis: Plan: At this time we will initiate physical therapy. Defer his NG status to medicine and the GI service. Hopefully will progress in the next few days and discharge home early next week. Admission and Anticipated Discharge Date Admission Date: July 08, 2021 Subjective Patient denies any nausea or vomiting. He states his leg pain is markedly improved. Back pain is controlled. Physical Exam Physical Exam: On exam patient is in a chair at the bedside. Is good strength testing. Appears comfortable. Abdomen is soft. Results & Data ([facility]) Vital Signs (Past 12 Hours) Vital Signs Temp Pulse Resp BP Pulse Ox 07/11/21 07:59 37.5 C 65 18 157/83 H 92 07/10/21 22:01 37.1 C 61 16 126/61 91
[2021-07-11] MEDS: PANTOprazole 40 MG in SYRINGE 0 ML IV SCH (11:00)
[2021-07-11] MEDS ORDERED: COUGH DROP (SUGAR FREE) LOZ 24 LOZ/1 BOX BUCCAL ONE (11:08)
[2021-07-11] MEDS ORDERED: ACETAMINOPHEN 500 MG TAB PO PRN (11:30)
[2021-07-11] MEDS: NSS + 20MEQ KCL 20 MEQ/1,000 ML BAG IV SCH (12:49)
[2021-07-11] MEDS: POTASSIUM CHLORIDE 20 MEQ in SODIUM CHLORIDE 0.9% 1000ML 1,000 ML IV SCH (12:50)
[2021-07-11] MEDS ORDERED: bisacodyL 10 MG SUPP PR PRN (17:27)
[2021-07-11] MEDS ORDERED: bisacodyL 5 MG TABEC PO ONE (17:30)
[2021-07-11] MEDS: ASPIRIN 81 MG ECTAB PO SCH (18:27)
[2021-07-11] MEDS: PANTOprazole 40 MG TAB PO SCH (20:57)
[2021-07-11] MEDS: METOPROLOL SUCC 25MG EXT REL TAB PO SCH (20:57)
[2021-07-11] MEDS: traMADol HCL 50 MG TABLET PO PRN (21:54)
[2021-07-12] MEDS: NSS + 20MEQ KCL 20 MEQ/1,000 ML BAG IV SCH (03:36)
--- NOTE | 2021-07-12 07:11 | Surgery Progress Note ---
Date of Service July 12, 2021 Assessment & Plan (1) Acute distention of stomach: Plan: 07/12/2021 We intentionally left the NG tube in until he was able to tolerate a diet since it was quite difficult to insert the NG tube and needed to be done with an EGD in the operating room but since the patient has moved his bowels he is tolerating a diet with the NG tube has been clamped therefore we will proceed to remove it and continue with advancing his diet Patient tolerating NGT clamping and the start of clear liquids KUB performed still showing some gastric distention... formal read not back yet. But would keep NGT in for today... was very difficult to place requiring GI assistance May try some full liquids today w/ NGT clamped Pt seen/examined with Dr. Jones Admission and Anticipated Discharge Date Admission Date: July 08, 2021 Subjective Feels much better had a bowel movement was able to tolerate a diet without any nausea Physical Exam Physical Exam: Abdomen is soft no tenderness Results & Data ([facility]) Vital Signs (Past 12 Hours) Vital Signs Temp Pulse Pulse Resp BP Pulse Ox 07/11/21 22:41 37.1 C 55 L 18 152/76 H 96 07/11/21 20:54 36.5 C 60 16 135/81 95 PG Care Time/CCT Total # of Minutes Spent Total Time Spent with Patient: Total time spent is greater than 50% in coordination of care (as documented) at patient's floor/unit and/or counseling patient: Coding Level of Care Code 90724 Subseq Hosp Care Lvl 3 Diagnoses Acute distention of stomach K31.0
[2021-07-12 07:18] LABS: Hematocrit (blood only) 33.9 % (42-52); Hemoglobin 11.7 g/dL (14.0-18.0); Mean Corpuscular Hemoglobin 31.8 pg (25-34); Mean Corpuscular Hgb Conc 34.5 g/dL (32-36); Mean Corpuscular Volume 92.1 fL (80-100); Mean Platelet Volume 9.3 fL (7.4-10.4); Platelet Count 182 K/uL (130-400); RDW Coefficient of Variation 12.2 % (11.5-14.5); RDW Standard Deviation 41.8 fL (36.4-46.3); Red Blood Count 3.68 M/uL (4.7-6.1); White Blood Count 10.43 K/uL (4.8-10.8)
[2021-07-12 07:39] LABS: Calcium 7.7 mg/dl (8.5-10.1); Creatinine Clr Calc Pharmacy 126.9 ml/min; Est GFR (African American) 114.8 ml/min; Est GFR (Non-African American) 99.1 ml/min; Magnesium 1.8 mg/dl (1.7-2.4)
[2021-07-12] MEDS: ISOSORBIDE MONO EXTENDED REL 30 MG TABCR PO SCH (08:00)
[2021-07-12] MEDS: ASPIRIN 81 MG ECTAB PO SCH (08:00)
[2021-07-12] MEDS: PANTOprazole 40 MG TAB PO SCH ×2 (08:01→21:34)
[2021-07-12] MEDS: dexAMETHasone 6 MG in SYRINGE 0 ML IV SCH (08:01)
--- NOTE | 2021-07-12 13:34 | Orthopedic Progress Note ---
Date of Service July 12, 2021 Assessment & Plan (1) Neurogenic claudication due to lumbar spinal stenosis: Plan: This time we will continue physical therapy advance his diet as tolerated throughout the day. Most likely to be able to discharge home tomorrow. Admission and Anticipated Discharge Date Admission Date: July 08, 2021 Subjective Patient is quite comfortable at this time. Denies any abdominal pain nausea or vomiting. He is tolerating physical therapy without difficulty. Physical Exam Physical Exam: On exam patient is in the chair at the bedside. Appears comfortable. Is good strength testing. Abdomen soft. Results & Data ([facility]) Vital Signs (Past 12 Hours) Vital Signs Temp Pulse Resp BP Pulse Ox 07/12/21 10:50 36.9 C 66 14 112/74 95 07/12/21 07:10 36.6 C 56 L 16 140/80 95
--- NOTE | 2021-07-12 16:51 | Hospitalist Progress Note ---
Date of Service July 12, 2021 Assessment & Plan (1) Acute distention of stomach: Plan: - RESOLVED -- Occurred post-operatively with nausea/vomiting; initial KUB with severe gaseous distention of the stomach - Tolerated diet advancement with NGT clamping trials; NGT removed on 07/12 and currently tolerated a regular diet; moving his bowels - Stop addition IVF at this time; will hold Losartan/HCTZ but can resume on D/C - Gen Surg/GI consulted - NGT unable to be placed at bedside and underwent placement via EGD -- No masses or strictures observed; possible gastroparesis contributing? (2) Ileus: Plan: - RESOLVED; as above (3) Neurogenic claudication due to lumbar spinal stenosis: Plan: - S/P #1 removal of posterior instrumentation L4-5 per #2 exploration of fusion L4-5. #3 revision decompression with bilateral medial facetectomies and foraminotomies L2-L3 L3-L4. #4 posterior spinal fusion L3-L4. #5 placement posterior instrumentation L3-L4. #6 placement locally harvested morselized autograft in the posterior gutters. #7 placement infuse collagen sponge, master graft in the posterior lateral gutters. -- Also with 2 durotomy on OP report - EBL 300cc. -- Hgb stable at 11.7 -- a drop from 14.8 -- suspect some losses from surgery and dilution -- acute blood loss anemia - LAURA drain removed 07/10; Decadron per primary - Continue pain control and bowel regimen - Noted to have some blistering/serous drainage from medipore tape - wound care evaluated - plan for cleansing with saline and cover with Optifoam and change Q3D or as needed for drainage - Activity/PT/OT and surgical management per primary - Dr. Redman (4) HTN (hypertension): Plan: - STABLE - Continue metoprolol, hold diuretics (5) CAD (coronary artery disease): Plan: - History of CAD- Cath 2014 with 70-80% Om, 50% LT Main, 60% LAD, with IVUS - medical management - ASA 81 mg daily; Continue BB and isosorbide; can resume statin on D/C (6) GERD (gastroesophageal reflux disease): Plan: - Continue Protonix 40 mg daily -- no increased in reflux symptoms reported (7) Obesity: Plan: - Continue with weight reduction goals to decrease mcc CV morbidity Plan: Encouraged ambulation -- increased activity per primary Continued inpatient stay, suspect likely D/C tomorrow if tolerating regular diet and no further nausea/vomiting --> hospitalist service will follow along Admission and Anticipated Discharge Date Admission Date: July 08, 2021 Supervising Physician Co-Signing Physician Notes CHANTAL Supervision Note: I did not personally see or examine the patient today, but I verified all arriaga points of CHANTAL Mendieta's assessment and plan with the following exceptions/additions: None Subjective No acute events overnight. Had NGT removed this AM and tolerating a regular diet without issue. Has moved his bowels twice. Reports no abdominal pain or nausea/vomiting. Reports minimal back pain and ambulating well. Verbalizes no new complaints Review of Systems Review of Systems: All systems reviewed & are unremarkable except as noted in Subjective Physical Exam 2 Physical Exam: PHYSICAL EXAM General Appearance: WDWN in NAD who is A&O x 3 HEENT: Head is normocephalic/atraumatic; Hearing grossly intact; Mucous membranes moist Neck: Supple; Trachea midline; Neg JVD Heart: RRR with no M/G/R Lungs: CTA in all lung garcia bilaterally; Respirations unlabored; Neg accessory muscle use Abdomen: Soft, non-tender, non-distended; Positive BS x 4 quadrants Extremities: Neg cyanosis or edema Neurological: Speech clear; Gross motor/sensory function intact; Neg focal neurologic deficits Psychiatric: Appropriate mood/affect Skin: Normal Color; Warm/Dry; reviewed wound care imaging of back/flank/buttocks region Results & Data Results & Data ([facility]) Vital Signs (Past 12 Hours) Vital Signs Temp Pulse Pulse Resp BP Pulse Ox 07/12/21 14:30 37 C 56 L 16 144/74 H 96 07/12/21 10:50 36.9 C 66 14 112/74 95 07/12/21 07:10 36.6 C 56 L 16 140/80 95 PG Care Time/CCT Total # of Minutes Spent Total Time Spent with Patient: Total time spent is greater than 50% in coordination of care (as documented) at patient's floor/unit and/or counseling patient: Coding Level of Care Code 62131 Inpt Consult Level 3 Diagnoses Acute distention of stomach K31.0 Ileus K56.7 Neurogenic claudication due to lumbar spinal stenosis M48.062 HTN (hypertension) I10 CAD (coronary artery disease) I25.10 GERD (gastroesophageal reflux disease) K21.9 Obesity E66.9
[2021-07-12] MEDS: METOPROLOL SUCC 25MG EXT REL TAB PO SCH (21:34)
[2021-07-13] MEDS: ASPIRIN 81 MG ECTAB PO SCH (08:08)
[2021-07-13] MEDS: dexAMETHasone 6 MG in SYRINGE 0 ML IV SCH (08:08)
[2021-07-13] MEDS: PANTOprazole 40 MG TAB PO SCH (08:08)
[2021-07-13] MEDS: ISOSORBIDE MONO EXTENDED REL 30 MG TABCR PO SCH (08:08)
--- NOTE | 2021-07-13 11:45 | Hospitalist Progress Note ---
Date of Service July 13, 2021 Assessment & Plan (1) Acute distention of stomach: Plan: - RESOLVED -- Occurred post-operatively with nausea/vomiting; initial KUB with severe gaseous distention of the stomach - Tolerated diet advancement with NGT clamping trials; NGT removed on 07/12 and currently tolerated a regular diet; moving his bowels last on 07/12 - Losartan/HCTZ can resume on D/C - Gen Surg/GI consulted - NGT unable to be placed at bedside and underwent plac ement via EGD -- No masses or strictures observed; possible gastroparesis contributing? (2) Ileus: Plan: - RESOLVED; as above (3) Neurogenic claudication due to lumbar spinal stenosis: Plan: - S/P #1 removal of posterior instrumentation L4-5 per #2 exploration of fusion L4-5. #3 revision decompression with bilateral medial facetectomies and foraminotomies L2-L3 L3-L4. #4 posterior spinal fusion L3-L4. #5 placement posterior instrumentation L3-L4. #6 placement locally harvested morselized autograft in the posterior gutters. #7 placement infuse collagen sponge, master graft in the posterior lateral gutters. -- Also with 2 durotomy on OP report - EBL 300cc. -- Hgb stable at 11.7 -- a drop from 14.8 -- suspect some losses from surgery and dilution -- acute blood loss anemia; asymptomatic - LAURA drain removed 07/10; Decadron per primary - Continue pain control and bowel regimen - Noted to have some blistering/serous drainage from medipore tape - wound care evaluated - plan for cleansing with saline and cover with Optifoam and change Q3D or as needed for drainage - Activity/PT/OT and surgical management per primary - Dr. 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 Patient continue all home medications as previously prescribed. All other instructions/restrictions per primary. No hospitalist medicine reason to remain hospitalized at this time. Discharge is anticipated today through primary service. Thank you for the consultation and the opportunity to take care of Mr. Cervantes. Admission and Anticipated Discharge Date Admission Date: July 08, 2021 Subjective No acute events overnight. Continues to tolerate a regular diet without abdominal pain, nausea, vomiting. He hasn't moved his bowels today but feels like he may later and did have two large BMs yesterday. Ambulating well and denies significant pain. Reports he avoids narcotics. He anticipates being able to go home today Review of Systems Review of Systems: All systems reviewed & are unremarkable except as noted in Subjective Physical Exam Physical Exam: PHYSICAL EXAM General Appearance: WDWN in NAD who is A&O x 3 HEENT: Head is normocephalic/atraumatic; Hearing grossly intact; Mucous membranes moist Neck: Supple; Trachea midline; Neg JVD Heart: RRR with no M/G/R Lungs: CTA in all lung garcia bilaterally; Respirations unlabored; Neg accessory muscle use Abdomen: Soft, non-tender, non-distended; Positive BS x 4 quadrants Extremities: Neg cyanosis or edema Neurological: Speech clear; Gross motor/sensory function intact; Neg focal neurologic deficits Psychiatric: Appropriate mood/affect Skin: Normal Color; Warm/Dry; reviewed wound care imaging of back/flank/buttocks region Results & Data Results & Data ([facility]) Vital Signs (Past 12 Hours) Vital Signs Temp Pulse Resp BP Pulse Ox 07/13/21 07:04 37.1 C 59 L 16 143/74 H 95 PG Care Time/CCT Total # of Minutes Spent Total Time Spent with Patient: Total time spent is greater than 50% in coordination of care (as documented) at patient's floor/unit and/or counseling patient: Coding Level of Care Code 54718 Inpt Consult Level 3 Diagnoses Acute distention of stomach K31.0 Ileus K56.7 Neurogenic claudication due to lumbar spinal stenosis M48.062 HTN (hypertension) I10 CAD (coronary artery disease) I25.10 GERD (gastroesophageal reflux disease) K21.9 Obesity E66.9
--- NOTE | 2021-07-13 14:23 | Discharge Summary ---
Date of Service July 13, 2021 Principal Diagnosis Lumbar spinal stenosis with radiculopathy Discharge Data Allergies Allergy/AdvReac Type Severity Reaction Status Date / Time No Known Allergies Allergy Unknown Verified 07/09/21 13:40 Consultations 07/08/21 17:18 Consult Hospitalist Routine 07/09/21 10:05 Consult General Surgery Routine 07/09/21 10:51 Consult Gastroenterology Routine Procedures Performed Operation Date: 07/08/21 09:45 Actual Procedures p L3-L4 Decompression and Fusion, , (Not Applicable) - Gorge Redman DO s L4-L5 Hardware Removal(Not Applicable) - Gorge Redman DO s Repair of Dural Rear(Not Applicable) - Gorge Redman DO Operation Date: 07/09/21 11:40 Actual Procedures p Esophagogastroduodenoscopy - Jeff Hale MD Ordered Studies 07/08/21 09:45 FL lumbar spine 2-3V Routine Hospital Course (1) Neurogenic claudication due to lumbar spinal stenosis: Patient with lumbar decompression fusion tolerated this well was taken to orthopedic floor postoperatively. On fourth postop day 1 he demonstrated significant ileus. NG had to be placed. He had this in place for 2 days. His belly subsequently was decompressed abdomen became soft and bowels working properly. Able to tolerate diet. His back and leg symptoms improved and he was ambulating without difficulty. Good strength testing. Subsequently discharged home. Discharge orders instructions found in chart for further review. Total Time Total Time Spent Total Time Spent (In Minutes): 20 minutes Discharge Plan Discharge Items Patient Disposition: Home - Self-Care Reason For Visit: Spinal Stenosis of Lumbar Region with Radiculopath Discharge Diagnosis: Lumbar spinal stenosis with radiculopathy Activity: As commented below Non-emergency contact: Primary Care Provider Call non-emergency contact if: you have any medication questions Follow-up/Referrals: Brett Woodruff DO [Primary Care Provider] - Diet: Regular Addtl Attending Provider Instructions: ACTIVITY RECOMMENDATIONS: SELF CARE INSTRUCTIONS AFTER THORACIC/LUMBAR FUSIONS 1. You may walk to your tolerance. It is good exercise for your legs and back. Expect some back and intermittent leg aches and pains. 2. You may perform "counter-top" level activities (make a sandwich, nidhi with a project, etc.). 3. No bending or lifting of more than 10 pounds or back twisting of any nature (roll like a log when turning in bed). 4. You may ride in a car for 20-30 minutes at a time. No driving until after your first visit with your doctor. 5. Frequent changes of position and restricting sitting to 30 minutes at a time will help limit the amount of back spasms and stiffness you may experience. 6. You may discontinue the use of ambulatory aids (cane, crutches, etc.) once your strength and confidence allow. 7. You may consulting hr professional the shower and let water strike your incision when you arrive home at least once daily. Do not take a tub bath, sit in a hot tub or go into a swimming pool until after your first recheck in the office. SPECIAL CARE INSTRUCTIONS: VERY IMPORTANT TO READ AND REVIEW A. Your surgical incision has been closed with a cosmetic suture under the skin that will dissolve in about 6 weeks. In 14 days, you can use a pair of clean scissors and cut the suture that is left outside of the skin at the ends of your incision. 1. The small skin tapes can be removed 7 days after surgery if they have not fallen off by that point. 2. You may keep the wound open to air as much as possible to promote healing after post-op day number 5 unless told otherwise by your doctor. 3. If you think the wound looks like it is becoming infected (redness or worsening drainage) and/or you are experiencing fever, chill or worsening back pain and muscle spasms, contact the office so that we may evaluate you as soon as possible. B. Complications are uncommon, but please contact us if you have any signs or symptoms of: 1. wound infection (fever higher than 102.5 degrees F, redness, separation of wound, drainage, or increasing pain from the incision) 2. blood clots in legs (pain, swelling, redness and warmth in legs) 3. urinary tract infection (fever higher than 102.5 degrees F, burning upon urination or increased frequency of urination) 4. nerve problems (inability to walk on your toes or heels, numbness, loss of bowel or bladder control) 5. any other symptoms that concern you C. Please call the office at if you have any concerns or questions about your operation or recovery. D. No smoking! Smoking drastically decreases the chance of a solid fusion. E. Do not take any anti-inflammatory medications (Indocin, Advil, Motrin, Aspirin, Naprosyn, etc.) as these may inhibit the chance of a solid fusion. Tylenol is okay to take for pain. MANAGING PAIN AFTER SPINAL SURGERY 1. Narcotic medication is intended for short-term use and will be provided for surgical pain. Surgical pain usually lasts for a period of 4-6 weeks. Narcotic medication includes Percocet, Vicodin, Darvocet, Tylenol #3 or Lortab. 2. Longer-term pain is more appropriately treated with non-narcotic medication such as Tylenol ES. 3. Muscle spasm is not appropriately treated with narcotics. Muscle relaxers such as Soma, Flexeril or Skelaxin can be used along with Tylenol ES. 4. Remember that we all live with some "aches and pains". This is not unusual or uncommon after an injury or as we get older. a. Back pain is expected and may include muscle spasms for 4 to 6 weeks after surgery. The pain should gradually improve. If the pain worsens for no apparent reason, please contact the office. b. Intermittent leg pain may also be experienced and should not be concerned about unless it worsens for no apparent reason. If so, please contact the office. 5. We will provide appropriate medication within the normal guidelines of their prescribed use. We will also be very cautious and aware of potential abuse and extended duration of patients' medication needs. a. Pain medications are for your comfort and to assist with sleep and rest so that the tissue can heal. They are not provided in order to return to normal activity and should not be used through the day. To do so or worsening pain at night can result from ongoing tissue damage and development of tolerance to the prescribed medicine. 6. Please allow 2-3 days to process refills. Prescriptions will not be mailed but must be picked up at the office. FOLLOW UP VISIT: Keep your scheduled follow-up appointment. Any questions, please call the office at . Pending Studies at Discharge: No Stand-Alone Forms: [facility] [employer], Opioid Pain Management, Smoking Cessation Medications and DC Order Prescriptions: New tramadol 50 mg tablet 50 mg PO Q6H PRN (Reason: pain, moderate) Qty: 30 RF: 0 oxycodone 5 mg tablet 5 mg PO Q6H PRN (Reason: pain, severe) Qty: 30 RF: 0 Continued isosorbide mononitrate 30 mg Tablet Extended Release 24 Hr 30 mg PO QAM RF: 0 aspirin 81 mg Tablet,Delayed Release (Dr/Ec) 81 mg PO QAM RF: 0 metoprolol succinate 25 mg Tablet Extended Release 24 Hr 25 mg PO QPM RF: 0 losartan-hydrochlorothiazide 50-12.5 mg Tablet 1 tab PO QPM RF: 0 ezetimibe 10 mg Tablet 10 mg PO QPM RF: 0 rosuvastatin 20 mg Tablet 20 mg PO QPM RF: 0 omeprazole 20 mg Tablet,Delayed Release (Dr/Ec) 20 mg PO QAM RF: 0 Discharge Orders: Discharge Order (Routine); Ordered 07/13/21 Ordered By: Gorge Decker/Other Patient Handouts: DVT Post Op Prevention Admission Data Admit Date/Time: 07/08/21 11:10 Attending Provider: Gorge Redman Admit Provider: Gorge Redman Primary Care Provider: Brett Woodruff Other Providers: Bijan Randall ; Jeff Hale Natalie B. ; Jony Martin Other Interventions: Discharge Summary Assessment (RN) Last Done: 07/13/21 12:23
== END 2021-07-13 14:20 | disposition home or self-care (01) | DRG 460 ==
LOC: ASU 08:05 → 3W 11:10